=== PATIENT | female | born 1980 | race Asian ===

== ENCOUNTER 2018-03-22 04:08 | Inpatient (IN) | payer OTHER ==
[2018-03-22 05:20] LABS: ADD MAN DIFF? NO
[2018-03-22 05:21] LABS: BASOPHILS % 0.6 % (0.0-2.0); EOSINOPHILS # 0.1 10^3/ul (0.0-0.5); EOSINOPHILS % 1.6 % (0.0-7.0); HEMOGLOBIN 8.4 g/dl (12.0-16.0); LYMPHOCYTES # 0.8 10^3/ul (0.8-2.9); MEAN CORPUSCULAR HEMOGLOBIN 26.3 pg (29.0-33.0); MEAN CORPUSCULAR HGB CONC 31.1 g/dl (32.0-37.0); MEAN CORPUSCULAR VOLUME 84.4 fl (82.0-101.0); MEAN PLATELET VOLUME 9.4 fl (7.4-10.4); MONOCYTE # 0.6 10^3/ul (0.3-0.9); MONOCYTES % 8.4 % (0.0-11.0); NEUTROPHIL # 5.4 10^3/ul (1.6-7.5); NEUTROPHILS % 77.1 % (39.0-77.0); PLATELET COUNT 311 10^3/UL (140-415)
[2018-03-22] MEDS: SOD CHLORIDE 0.9% 1,000 ML IV (05:22)
[2018-03-22] MEDS: morphine 4 MG/ML VIAL IV (05:22)
[2018-03-22] MEDS: ONDANSETRON 4 MG INJ IV ×2 (05:22→09:06)
[2018-03-22 05:56] LABS: ALANINE AMINOTRANSFERASE 19 IU/L (13-69); ALBUMIN 3.2 g/dl (3.3-4.9); ALKALINE PHOSPHATASE 52 IU/L (42-121); ANION GAP 10 (5-13); ASPARTATE AMINO TRANSFERASE 25 IU/L (15-46); BILIRUBIN,INDIRECT 0.2 mg/dl (0-1.1); BILIRUBIN,TOTAL 0.2 mg/dl (0.2-1.3); BLOOD UREA NITROGEN 11 mg/dl (7-20); CALCIUM 8.9 mg/dl (8.4-10.2); CARBON DIOXIDE 25 mmol/L (21-31); CHLORIDE 104 mmol/L (97-110); CREATININE 0.88 mg/dl (0.44-1.00); Estimated GFR > 60 mL/min (>60); GLUCOSE 102 mg/dl (70-220); LIPASE 50 U/L (23-300); SODIUM 139 mmol/L (135-144); TOTAL PROTEIN 6.4 g/dl (6.1-8.1)
[2018-03-22 08:00] LABS: ADD UMIC NO; UR ASCORBIC ACID NEGATIVE (NEGATIVE); UR BILIRUBIN (Dip) NEGATIVE (NEGATIVE); UR BLOOD (Dip) NEGATIVE (NEGATIVE); UR CLARITY CLEAR (CLEAR); UR COLOR YELLOW (YELLOW); UR GLUCOSE (Dip) NEGATIVE (NEGATIVE); UR KETONES (Dip) TRACE mg/dL (NEGATIVE); UR LEUKOCYTE ESTERASE (Dip) NEGATIVE Leu/ul (NEGATIVE); UR NITRITE (Dip) NEGATIVE (NEGATIVE); UR SPECIFIC GRAVITY (Dip) 1.011 (1.003-1.030); UR TOTAL PROTEIN (Dip) NEGATIVE (NEGATIVE); UR UROBILINOGEN (Dip) 1+ mg/dL (NEGATIVE)
[2018-03-22] MEDS: HYDROmorphONE 2 MG/ML SYG IV (09:06)
[2018-03-22] MEDS ORDERED: METOCLOPRAMIDE 10 MG INJ (10:27)
[2018-03-22] MEDS: PANTOPRAZOLE 40 MG INJ IV (10:34)
[2018-03-22] MEDS: METOCLOPRAMIDE 10 MG INJ IV (10:34)
[2018-03-22] MEDS: IOHEXOL 14.3 MG(I)/ML (ADULT) BTL PO (12:09)
[2018-03-22] MEDS: IOHEXOL 300MG/ML 150 ML BTL (15:37)
[2018-03-22] MEDS: SOD CHLORIDE 0.9% 100 ML (15:37)
[2018-03-22] MEDS: HYDROmorphONE 1 MG/ML SYG IV ×2 (16:12→20:50)
[2018-03-23] MEDS: HYDROmorphONE 1 MG/ML SYG IV ×6 (00:51→21:32)
[2018-03-23] MEDS: METOCLOPRAMIDE 10 MG INJ IV ×4 (01:23→17:25)
[2018-03-23] MEDS: OXYCODONE/ACETAMINOPHEN (10/325) TAB PO (07:47)
[2018-03-23 11:01] LABS: ADD MAN DIFF? NO
[2018-03-23 11:04] LABS: WHITE BLOOD COUNT 7.3 10^3/ul (4.8-10.8)
[2018-03-23 11:04] LABS: BASOPHIL # 0.1 10^3/ul (0.0-0.1); BASOPHILS % 0.7 % (0.0-2.0); EOSINOPHILS # 0.1 10^3/ul (0.0-0.5); EOSINOPHILS % 0.8 % (0.0-7.0); HEMOGLOBIN 8.8 g/dl (12.0-16.0); LYMPHOCYTES # 0.8 10^3/ul (0.8-2.9); LYMPHOCYTES % 10.9 % (15.0-51.0); MEAN CORPUSCULAR HEMOGLOBIN 25.9 pg (29.0-33.0); MEAN CORPUSCULAR HGB CONC 30.3 g/dl (32.0-37.0); MEAN CORPUSCULAR VOLUME 85.3 fl (82.0-101.0); MEAN PLATELET VOLUME 9.8 fl (7.4-10.4); MONOCYTE # 0.5 10^3/ul (0.3-0.9); MONOCYTES % 7.2 % (0.0-11.0); NEUTROPHIL # 5.8 10^3/ul (1.6-7.5); NEUTROPHILS % 79.8 % (39.0-77.0); PLATELET COUNT 329 10^3/UL (140-415); RED CELL DISTRIBUTION WIDTH 18.1 % (11.5-14.5)
[2018-03-23 11:28] LABS: ALANINE AMINOTRANSFERASE 35 IU/L (13-69); ALBUMIN 3.7 g/dl (3.3-4.9); ALBUMIN/GLOBULIN RATIO 1.12; ALKALINE PHOSPHATASE 58 IU/L (42-121); ANION GAP 13 (5-13); ASPARTATE AMINO TRANSFERASE 39 IU/L (15-46); BILIRUBIN,INDIRECT 0.4 mg/dl (0-1.1); BILIRUBIN,TOTAL 0.4 mg/dl (0.2-1.3); BLOOD UREA NITROGEN 6 mg/dl (7-20); CALCIUM 8.9 mg/dl (8.4-10.2); CARBON DIOXIDE 21 mmol/L (21-31); CHLORIDE 107 mmol/L (97-110); CREATININE 0.76 mg/dl (0.44-1.00); Estimated GFR > 60 mL/min (>60); GLUCOSE 70 mg/dl (70-220); POTASSIUM 4.4 mmol/L (3.5-5.1); SODIUM 141 mmol/L (135-144)
[2018-03-23] MEDS: BISACODYL (EC) 5 MG TAB PO ×2 (13:17→20:18)
[2018-03-23] MEDS: PEG/ELECTROLYTES 4L BTL PO ×2 (16:43→20:19)
[2018-03-23] MEDS: DEXTROSE 5%-0.45% NACL 1,000 ML IV (20:20)
[2018-03-23] MEDS: ZOLPIDEM 5 MG TAB PO (22:58)
[2018-03-24] MEDS: METOCLOPRAMIDE 10 MG INJ IV ×4 (00:01→18:06)
[2018-03-24] MEDS: HYDROmorphONE 2 MG/ML SYG IV ×6 (01:13→21:50)
[2018-03-24 07:01] LABS: ADD MAN DIFF? NO
[2018-03-24 07:10] LABS: BASOPHILS % 0.7 % (0.0-2.0); EOSINOPHILS # 0.1 10^3/ul (0.0-0.5); HEMATOCRIT 28.9 % (37.0-47.0); HEMOGLOBIN 8.8 g/dl (12.0-16.0); LYMPHOCYTES # 1.1 10^3/ul (0.8-2.9); MEAN CORPUSCULAR HGB CONC 30.4 g/dl (32.0-37.0); MEAN CORPUSCULAR VOLUME 85.3 fl (82.0-101.0); MEAN PLATELET VOLUME 9.9 fl (7.4-10.4); MONOCYTE # 0.7 10^3/ul (0.3-0.9); MONOCYTES % 12.4 % (0.0-11.0); NEUTROPHIL # 3.7 10^3/ul (1.6-7.5); NEUTROPHILS % 65.5 % (39.0-77.0); PLATELET COUNT 376 10^3/UL (140-415); RED BLOOD COUNT 3.39 10^6/ul (4.20-5.40)
[2018-03-24 07:10] LABS: WHITE BLOOD COUNT 5.6 10^3/ul (4.8-10.8)
[2018-03-24 07:23] LABS: INR 1.07; PARTIAL THROMBOPLASTIN TIME 32.3 Sec (23.0-35.0); PT RATIO 1.1
[2018-03-24] MEDS: DEXTROSE 5%-0.45% NACL 1,000 ML IV ×2 (11:10→12:29)
[2018-03-24] MEDS: OXYCODONE/ACETAMINOPHEN (10/325) TAB PO ×2 (12:35→21:17)
[2018-03-24] MEDS: PROPOFOL 40 ML (16:08)
[2018-03-24] MEDS: ZOLPIDEM 5 MG TAB PO (23:03)
[2018-03-25] MEDS: METOCLOPRAMIDE 10 MG INJ IV ×4 (00:21→17:21)
[2018-03-25] MEDS: HYDROmorphONE 2 MG/ML SYG IV ×5 (05:12→21:24)
[2018-03-25 05:14] LABS: WHITE BLOOD COUNT 6.3 10^3/ul (4.8-10.8)
[2018-03-25 05:14] LABS: ADD MAN DIFF? NO; BASOPHILS % 0.6 % (0.0-2.0); EOSINOPHILS # 0.2 10^3/ul (0.0-0.5); EOSINOPHILS % 2.8 % (0.0-7.0); HEMATOCRIT 29.5 % (37.0-47.0); HEMOGLOBIN 9.1 g/dl (12.0-16.0); LYMPHOCYTES # 1.1 10^3/ul (0.8-2.9); LYMPHOCYTES % 16.8 % (15.0-51.0); MEAN CORPUSCULAR HEMOGLOBIN 25.9 pg (29.0-33.0); MEAN CORPUSCULAR HGB CONC 30.8 g/dl (32.0-37.0); MEAN CORPUSCULAR VOLUME 83.8 fl (82.0-101.0); MEAN PLATELET VOLUME 9.8 fl (7.4-10.4); MONOCYTE # 0.8 10^3/ul (0.3-0.9); NEUTROPHIL # 4.3 10^3/ul (1.6-7.5); NEUTROPHILS % 67.5 % (39.0-77.0); PLATELET COUNT 356 10^3/UL (140-415); RED BLOOD COUNT 3.52 10^6/ul (4.20-5.40)
[2018-03-25 05:53] LABS: ANION GAP 12 (5-13); BLOOD UREA NITROGEN 2 mg/dl (7-20); CALCIUM 8.9 mg/dl (8.4-10.2); CARBON DIOXIDE 23 mmol/L (21-31); CHLORIDE 106 mmol/L (97-110); CREATININE 0.78 mg/dl (0.44-1.00); Estimated GFR > 60 mL/min (>60); GLUCOSE 82 mg/dl (70-220); POTASSIUM 3.7 mmol/L (3.5-5.1); SODIUM 141 mmol/L (135-144)
[2018-03-25] MEDS: OXYCODONE/ACETAMINOPHEN (10/325) TAB PO ×3 (11:19→19:30)
[2018-03-25] MEDS: MEGESTROL (40 MG/ML) 10ML CUP PO (12:10)
[2018-03-25] MEDS: DEXTROSE 5%-0.45% NACL 1,000 ML IV (20:30)
[2018-03-25] MEDS: ZOLPIDEM 5 MG TAB PO (22:48)
[2018-03-26] MEDS: METOCLOPRAMIDE 10 MG INJ IV ×5 (00:01→23:45)
[2018-03-26] MEDS: HYDROmorphONE 2 MG/ML SYG IV ×6 (02:29→22:38)
[2018-03-26 05:20] LABS: ADD MAN DIFF? NO
[2018-03-26 05:25] LABS: WHITE BLOOD COUNT 7.3 10^3/ul (4.8-10.8)
[2018-03-26 05:25] LABS: BASOPHILS % 0.4 % (0.0-2.0); EOSINOPHILS # 0.3 10^3/ul (0.0-0.5); EOSINOPHILS % 4.1 % (0.0-7.0); HEMATOCRIT 30.8 % (37.0-47.0); HEMOGLOBIN 9.4 g/dl (12.0-16.0); LYMPHOCYTES # 1.1 10^3/ul (0.8-2.9); LYMPHOCYTES % 14.5 % (15.0-51.0); MEAN CORPUSCULAR HEMOGLOBIN 25.3 pg (29.0-33.0); MEAN CORPUSCULAR HGB CONC 30.5 g/dl (32.0-37.0); MEAN CORPUSCULAR VOLUME 82.8 fl (82.0-101.0); MEAN PLATELET VOLUME 9.8 fl (7.4-10.4); MONOCYTE # 0.9 10^3/ul (0.3-0.9); MONOCYTES % 11.6 % (0.0-11.0); PLATELET COUNT 357 10^3/UL (140-415); RED BLOOD COUNT 3.72 10^6/ul (4.20-5.40); RED CELL DISTRIBUTION WIDTH 17.9 % (11.5-14.5)
[2018-03-26] MEDS: OXYCODONE/ACETAMINOPHEN (10/325) TAB PO ×4 (05:33→17:47)
[2018-03-26 05:45] LABS: ANION GAP 9 (5-13); BLOOD UREA NITROGEN 2 mg/dl (7-20); CALCIUM 8.4 mg/dl (8.4-10.2); CARBON DIOXIDE 24 mmol/L (21-31); CHLORIDE 108 mmol/L (97-110); CREATININE 0.76 mg/dl (0.44-1.00); Estimated GFR > 60 mL/min (>60); GLUCOSE 79 mg/dl (70-220); POTASSIUM 3.8 mmol/L (3.5-5.1); SODIUM 141 mmol/L (135-144)
[2018-03-26] MEDS: MEGESTROL (40 MG/ML) 10ML CUP PO (08:41)
[2018-03-26] MEDS ORDERED: MEGESTROL 40 MG TAB PO (09:00)
[2018-03-26] MEDS: DEXTROSE 5%-0.45% NACL 1,000 ML IV (13:10)
[2018-03-26] MEDS: ZOLPIDEM 5 MG TAB PO (23:45)
[2018-03-27] MEDS: HYDROmorphONE 2 MG/ML SYG IV ×3 (04:03→12:21)
[2018-03-27] MEDS: METOCLOPRAMIDE 10 MG INJ IV ×2 (05:37→12:17)
[2018-03-27] MEDS: OXYCODONE/ACETAMINOPHEN (10/325) TAB PO ×2 (05:40→13:14)
[2018-03-27 05:42] LABS: ADD MAN DIFF? NO
[2018-03-27] MEDS: DEXTROSE 5%-0.45% NACL 1,000 ML IV (05:50)
[2018-03-27 05:53] LABS: BASOPHILS % 0.4 % (0.0-2.0); EOSINOPHILS # 0.5 10^3/ul (0.0-0.5); EOSINOPHILS % 5.5 % (0.0-7.0); HEMATOCRIT 31.5 % (37.0-47.0); HEMOGLOBIN 9.5 g/dl (12.0-16.0); LYMPHOCYTES # 0.9 10^3/ul (0.8-2.9); MEAN CORPUSCULAR HEMOGLOBIN 24.9 pg (29.0-33.0); MEAN CORPUSCULAR HGB CONC 30.2 g/dl (32.0-37.0); MEAN CORPUSCULAR VOLUME 82.7 fl (82.0-101.0); MEAN PLATELET VOLUME 10.1 fl (7.4-10.4); MONOCYTE # 0.9 10^3/ul (0.3-0.9); MONOCYTES % 10.3 % (0.0-11.0); NEUTROPHIL # 6.2 10^3/ul (1.6-7.5); NEUTROPHILS % 72.4 % (39.0-77.0); PLATELET COUNT 396 10^3/UL (140-415); RED BLOOD COUNT 3.81 10^6/ul (4.20-5.40); RED CELL DISTRIBUTION WIDTH 17.7 % (11.5-14.5)
[2018-03-27 05:53] LABS: WHITE BLOOD COUNT 8.6 10^3/ul (4.8-10.8)
[2018-03-27 06:18] LABS: ANION GAP 11 (5-13); BLOOD UREA NITROGEN 2 mg/dl (7-20); CALCIUM 8.3 mg/dl (8.4-10.2); CARBON DIOXIDE 24 mmol/L (21-31); CHLORIDE 107 mmol/L (97-110); CREATININE 0.69 mg/dl (0.44-1.00); Estimated GFR > 60 mL/min (>60); GLUCOSE 82 mg/dl (70-220); POTASSIUM 3.2 mmol/L (3.5-5.1); SODIUM 142 mmol/L (135-144)
[2018-03-27] MEDS: MEGESTROL (40 MG/ML) 10ML CUP PO (08:26)
[2018-03-27] MEDS: POTASSIUM CHLORIDE (SR) 20 MEQ TAB PO (09:17)
[2018-03-27] MEDS: ONDANSETRON 4 MG INJ IV (10:34)
[2018-03-27] MEDS: HEPARIN (100 UNITS/ML) 5 ML SYG CATHETER (14:50)
== END 2018-03-27 15:05 | disposition home or self-care (01) | DRG 841 ==
LOC: E/R 04:08 → PP2 11:35
PROC: 0DJD8ZZ Inspection of Lower Intestinal Tract, Via Natural or Artificial Opening Endoscopic (ICD-10-PCS; principal; 2018-03-24 15:40)
DX: C77.9 Secondary and unspecified malignant neoplasm of lymph node, unspecified (principal); C18.9 Malignant neoplasm of colon, unspecified; N13.1 Hydronephrosis with ureteral stricture, not elsewhere classified; K29.70 Gastritis, unspecified, without bleeding; D63.8 Anemia in other chronic diseases classified elsewhere; M54.9 Dorsalgia, unspecified; G89.3 Neoplasm related pain (acute) (chronic); R10.9 Unspecified abdominal pain; R11.2 Nausea with vomiting, unspecified; Z90.49 Acquired absence of other specified parts of digestive tract
CPT/HCPCS: 36415; 74177; 78306; 80048; 80053; 81003; 83690; 84703; 85025; 85610; 85730; 96361; 96374; 96375; 99285-25; A9503

== ENCOUNTER 2018-04-03 18:31 | Inpatient (IN) | payer OTHER ==
[2018-04-03] MEDS: HYDROmorphONE 1 MG/ML SYG IV (19:41)
[2018-04-03] MEDS: METOCLOPRAMIDE 10 MG INJ IV (19:42)
[2018-04-03] MEDS: LORAZEPAM 2 MG INJ IV (19:42)
[2018-04-03] MEDS: SOD CHLORIDE 0.9% 1,000 ML IV (19:42)
[2018-04-03 20:12] LABS: ADD MAN DIFF? NO
[2018-04-03 20:14] LABS: BASOPHILS % 0.5 % (0.0-2.0); EOSINOPHILS # 0.2 10^3/ul (0.0-0.5); EOSINOPHILS % 2.6 % (0.0-7.0); HEMOGLOBIN 8.3 g/dl (12.0-16.0); LYMPHOCYTES # 1.2 10^3/ul (0.8-2.9); LYMPHOCYTES % 15.1 % (15.0-51.0); MEAN CORPUSCULAR HEMOGLOBIN 24.8 pg (29.0-33.0); MEAN CORPUSCULAR HGB CONC 30.7 g/dl (32.0-37.0); MEAN CORPUSCULAR VOLUME 80.6 fl (82.0-101.0); MEAN PLATELET VOLUME 8.9 fl (7.4-10.4); MONOCYTE # 0.9 10^3/ul (0.3-0.9); MONOCYTES % 11.1 % (0.0-11.0); NEUTROPHIL # 5.4 10^3/ul (1.6-7.5); NEUTROPHILS % 70.3 % (39.0-77.0); PLATELET COUNT 379 10^3/UL (140-415); RED BLOOD COUNT 3.35 10^6/ul (4.20-5.40); RED CELL DISTRIBUTION WIDTH 18.5 % (11.5-14.5)
[2018-04-03 20:14] LABS: WHITE BLOOD COUNT 7.6 10^3/ul (4.8-10.8)
[2018-04-03 20:34] LABS: PROTIME 14.4 Sec (11.9-14.9); PT RATIO 1.1
[2018-04-03 20:37] LABS: ALANINE AMINOTRANSFERASE 14 IU/L (13-69); ALBUMIN 3.6 g/dl (3.3-4.9); ALBUMIN/GLOBULIN RATIO 1.24; ALKALINE PHOSPHATASE 56 IU/L (42-121); ANION GAP 7 (5-13); ASPARTATE AMINO TRANSFERASE 18 IU/L (15-46); BILIRUBIN,INDIRECT 0.3 mg/dl (0-1.1); BILIRUBIN,TOTAL 0.3 mg/dl (0.2-1.3); BLOOD UREA NITROGEN 11 mg/dl (7-20); CALCIUM 8.7 mg/dl (8.4-10.2); CARBON DIOXIDE 22 mmol/L (21-31); CHLORIDE 109 mmol/L (97-110); CREATININE 1.07 mg/dl (0.44-1.00); Estimated GFR 57 mL/min (>60); GLUCOSE 93 mg/dl (70-220); LIPASE 88 U/L (23-300); POTASSIUM 4.2 mmol/L (3.5-5.1); SODIUM 138 mmol/L (135-144); TOTAL PROTEIN 6.5 g/dl (6.1-8.1)
[2018-04-03] MEDS: HYDROmorphONE 0.5 MG/0.5 ML SYG IV (21:21)
[2018-04-03] MEDS ORDERED: ONDANSETRON 4 MG INJ IV (21:30)
[2018-04-03] MEDS ORDERED: ACETAMINOPHEN 325 MG TAB PO ×2 (21:30→23:30)
[2018-04-03] MEDS ORDERED: CHOLECALCIFEROL 1,000 UNIT TAB PO (23:30)
[2018-04-04] MEDS: HYDROmorphONE 1 MG/ML SYG IV ×7 (00:12→20:03)
[2018-04-04] MEDS: DEXTROSE 5%-0.45% NACL 1,000 ML IV ×3 (00:15→18:17)
[2018-04-04] MEDS: ZOLPIDEM 5 MG TAB PO (00:53)
[2018-04-04] MEDS: OXYCODONE/ACETAMINOPHEN (10/325) TAB PO ×3 (03:28→18:14)
[2018-04-04 05:15] LABS: ADD MAN DIFF? NO
[2018-04-04 05:20] LABS: WHITE BLOOD COUNT 6.9 10^3/ul (4.8-10.8)
[2018-04-04 05:20] LABS: BASOPHILS % 0.6 % (0.0-2.0); EOSINOPHILS # 0.2 10^3/ul (0.0-0.5); EOSINOPHILS % 3.1 % (0.0-7.0); HEMATOCRIT 25.6 % (37.0-47.0); HEMOGLOBIN 7.8 g/dl (12.0-16.0); LYMPHOCYTES # 1.1 10^3/ul (0.8-2.9); LYMPHOCYTES % 16.1 % (15.0-51.0); MEAN CORPUSCULAR HEMOGLOBIN 24.6 pg (29.0-33.0); MEAN CORPUSCULAR HGB CONC 30.5 g/dl (32.0-37.0); MEAN CORPUSCULAR VOLUME 80.8 fl (82.0-101.0); MEAN PLATELET VOLUME 9.3 fl (7.4-10.4); MONOCYTE # 0.8 10^3/ul (0.3-0.9); MONOCYTES % 12.1 % (0.0-11.0); NEUTROPHIL # 4.7 10^3/ul (1.6-7.5); NEUTROPHILS % 67.8 % (39.0-77.0); PLATELET COUNT 384 10^3/UL (140-415); RED BLOOD COUNT 3.17 10^6/ul (4.20-5.40); RED CELL DISTRIBUTION WIDTH 18.5 % (11.5-14.5)
[2018-04-04 05:46] LABS: ANION GAP 8 (5-13); BLOOD UREA NITROGEN 9 mg/dl (7-20); CALCIUM 8.8 mg/dl (8.4-10.2); CARBON DIOXIDE 24 mmol/L (21-31); CHLORIDE 109 mmol/L (97-110); CREATININE 0.88 mg/dl (0.44-1.00); Estimated GFR > 60 mL/min (>60); GLUCOSE 93 mg/dl (70-220); POTASSIUM 3.8 mmol/L (3.5-5.1); SODIUM 141 mmol/L (135-144)
[2018-04-04] MEDS: PANTOPRAZOLE 40 MG INJ IV (06:04)
[2018-04-04] MEDS: LACTOBACILLUS RHAMNOSUS CAP PO (08:16)
[2018-04-04] MEDS: FLUOXETINE 20 MG CAP PO (08:16)
[2018-04-04] MEDS: PREGABALIN 50 MG CAP PO ×2 (08:16→19:42)
[2018-04-04] MEDS: CHOLECALCIFEROL 1,000 UNIT TAB PO (08:16)
[2018-04-04] MEDS ORDERED: INFLUENZA VIRUS VACCINE 0.5 ML (DISPENSING) IM* (10:00)
[2018-04-04] MEDS ORDERED: HYDROmorphONE 2 MG/ML SYG IV (11:30)
[2018-04-04] MEDS: METOCLOPRAMIDE 10 MG INJ IV ×2 (13:51→18:14)
[2018-04-04] MEDS: SOD CHLORIDE 0.9% 100 ML ×2 (14:15→14:23)
[2018-04-04] MEDS: IOHEXOL 300MG/ML 150 ML BTL ×2 (14:15→14:23)
[2018-04-04 14:44] LABS: PROTIME 14.4 Sec (11.9-14.9); PT RATIO 1.1
[2018-04-04] MEDS: LORAZEPAM 2 MG INJ IV (14:49)
[2018-04-04] MEDS: HYDROmorphONE 2 MG/ML SYG IV (23:20)
[2018-04-05] MEDS: HYDROmorphONE 2 MG/ML SYG IV ×7 (02:23→22:33)
[2018-04-05] MEDS: METOCLOPRAMIDE 10 MG INJ IV ×2 (05:00→12:35)
[2018-04-05] MEDS: PANTOPRAZOLE 40 MG INJ IV (05:02)
[2018-04-05] MEDS: LORAZEPAM 2 MG INJ IV (05:28)
[2018-04-05] MEDS: DEXTROSE 5%-0.45% NACL 1,000 ML IV (09:08)
[2018-04-05] MEDS: CHOLECALCIFEROL 1,000 UNIT TAB PO (09:12)
[2018-04-05] MEDS: FLUOXETINE 20 MG CAP PO (09:12)
[2018-04-05] MEDS: PREGABALIN 50 MG CAP PO ×2 (09:12→22:33)
[2018-04-05] MEDS ORDERED: MEPERIDINE 50 MG INJ IV (12:00)
[2018-04-05] MEDS ORDERED: METHYLPREDNISOLONE 125 MG INJ IV (12:00)
[2018-04-05] MEDS ORDERED: DIPHENHYDRAMINE 50 MG INJ IV ×2 (12:00→15:00)
[2018-04-05] MEDS: OXYCODONE/ACETAMINOPHEN (10/325) TAB PO (14:40)
[2018-04-05] MEDS ORDERED: ONDANSETRON INJ 16 MG, DEXAMETHASONE 4 MG/ML 10 MG in SOD CHLORIDE 0.9% 50 ML IV (15:00)
[2018-04-05] MEDS ORDERED: SOD CHLORIDE 0.9% 1,000 ML IV (15:00)
[2018-04-05] MEDS ORDERED: LEUCOVORIN CALCIUM IV (15:30)
[2018-04-05] MEDS ORDERED: DEXTROSE 5% IV ×2 (15:30)
[2018-04-05] MEDS ORDERED: IRINOTECAN IV (15:30)
[2018-04-05] MEDS: hydrALAzine 20 MG INJ IV ×2 (17:02→18:19)
[2018-04-05] MEDS ORDERED: hydrALAzine 20 MG INJ IV ×2 (17:30→20:30)
[2018-04-05] MEDS ORDERED: SOD CHLORIDE 0.9% IV ×3 (18:00→21:00)
[2018-04-05] MEDS ORDERED: BEVACIZUMAB IV (18:00)
[2018-04-05] MEDS ORDERED: MIDAZOLAM 1 MG/ML 2 ML INJ (19:13)
[2018-04-05] MEDS ORDERED: SUCCINYLCHOLINE CHLORIDE 100 MG/5 ML SYG IV (19:13)
[2018-04-05] MEDS ORDERED: PROPOFOL 20 ML (19:13)
[2018-04-05] MEDS ORDERED: METOCLOPRAMIDE 10 MG INJ (19:14)
[2018-04-05] MEDS ORDERED: FENTAnyl 50 MCG/ML VIAL (19:34)
[2018-04-05] MEDS: IOHEXOL 300MG/ML 30 ML BTL (19:51)
[2018-04-05] MEDS ORDERED: ONDANSETRON 4 MG INJ (20:00)
[2018-04-05] MEDS ORDERED: FLUOROURACIL IV ×2 (20:00→21:00)
[2018-04-05] MEDS ORDERED: CEFAZOLIN 1 GM INJ (20:00)
[2018-04-05] MEDS ORDERED: DIPHENHYDRAMINE 50 MG INJ (20:13)
[2018-04-05] MEDS ORDERED: HYDROmorphONE 1 MG/5 ML IV SYRINGE IV ×3 (20:26→20:30)
[2018-04-05] MEDS ORDERED: ONDANSETRON 4 MG INJ IV (20:30)
[2018-04-05] MEDS ORDERED: LABETALOL HCL 20MG INJ IV (20:30)
[2018-04-05] MEDS: HYDROmorphONE 1 MG/5 ML IV SYRINGE IV (20:46)
[2018-04-05] MEDS: DIPHENHYDRAMINE 50 MG INJ IV (20:47)
[2018-04-05 22:47] LABS: IMMEDIATE SPIN CROSSMATCH 1 3
[2018-04-06] MEDS: OXYCODONE/ACETAMINOPHEN (10/325) TAB PO ×3 (01:13→13:22)
[2018-04-06] MEDS: HYDROmorphONE 2 MG/ML SYG IV ×8 (01:23→23:35)
[2018-04-06] MEDS: PANTOPRAZOLE 40 MG INJ IV (05:14)
[2018-04-06] MEDS: FLUOXETINE 20 MG CAP PO (08:11)
[2018-04-06] MEDS: PREGABALIN 50 MG CAP PO ×2 (08:11→20:36)
[2018-04-06] MEDS: CHOLECALCIFEROL 1,000 UNIT TAB PO (08:11)
[2018-04-06 08:23] LABS: ADD MAN DIFF? NO
[2018-04-06 08:29] LABS: BASOPHIL # 0.1 10^3/ul (0.0-0.1); BASOPHILS % 0.6 % (0.0-2.0); EOSINOPHILS # 0.1 10^3/ul (0.0-0.5); EOSINOPHILS % 1.3 % (0.0-7.0); HEMATOCRIT 31.8 % (37.0-47.0); HEMOGLOBIN 10.2 g/dl (12.0-16.0); LYMPHOCYTES % 11.3 % (15.0-51.0); MEAN CORPUSCULAR HEMOGLOBIN 24.9 pg (29.0-33.0); MEAN CORPUSCULAR HGB CONC 32.1 g/dl (32.0-37.0); MEAN CORPUSCULAR VOLUME 77.8 fl (82.0-101.0); MEAN PLATELET VOLUME 9.2 fl (7.4-10.4); MONOCYTES % 10.5 % (0.0-11.0); NEUTROPHIL # 6.9 10^3/ul (1.6-7.5); PLATELET COUNT 364 10^3/UL (140-415); RED BLOOD COUNT 4.09 10^6/ul (4.20-5.40); RED CELL DISTRIBUTION WIDTH 17.5 % (11.5-14.5)
[2018-04-06 08:29] LABS: WHITE BLOOD COUNT 9.1 10^3/ul (4.8-10.8)
[2018-04-06] MEDS: DEXTROSE 5%-0.45% NACL 1,000 ML IV ×2 (08:42→11:04)
[2018-04-06] MEDS: LORAZEPAM 0.5 MG TAB PO (14:39)
[2018-04-06] MEDS: morphine (ER) 30 MG TAB PO ×2 (15:01→23:04)
[2018-04-06] MEDS: POLYETHYLENE GLYCOL 17 GM PACKET PO (17:18)
[2018-04-06] MEDS: ZOLPIDEM 5 MG TAB PO (22:07)
[2018-04-07] MEDS: DEXTROSE 5%-0.45% NACL 1,000 ML IV ×2 (01:01→17:32)
[2018-04-07] MEDS: HYDROmorphONE 2 MG/ML SYG IV ×2 (02:31→05:46)
[2018-04-07] MEDS: PANTOPRAZOLE 40 MG INJ IV (05:46)
[2018-04-07] MEDS: LORAZEPAM 2 MG INJ IV (07:46)
[2018-04-07] MEDS: FENTAnyl 50 MCG/ML VIAL (09:55)
[2018-04-07] MEDS: MIDAZOLAM 1 MG/ML 2 ML INJ (10:00)
[2018-04-07] MEDS: HYDROmorphONE 1 MG/ML SYG IV ×4 (10:51→21:08)
[2018-04-07] MEDS: CHOLECALCIFEROL 1,000 UNIT TAB PO (10:51)
[2018-04-07] MEDS: PREGABALIN 50 MG CAP PO ×2 (10:52→21:19)
[2018-04-07] MEDS: FLUOXETINE 20 MG CAP PO (10:52)
[2018-04-07] MEDS: morphine (ER) 30 MG TAB PO ×2 (10:52→21:19)
[2018-04-07] MEDS: POLYETHYLENE GLYCOL 17 GM PACKET PO (18:02)
[2018-04-07] MEDS: LORAZEPAM 0.5 MG TAB PO (18:51)
[2018-04-07] MEDS: METOCLOPRAMIDE 10 MG INJ IV (18:51)
[2018-04-08] MEDS: HYDROmorphONE 1 MG/ML SYG IV ×8 (00:19→23:12)
[2018-04-08] MEDS: PANTOPRAZOLE 40 MG INJ IV (06:56)
[2018-04-08] MEDS: FLUOXETINE 20 MG CAP PO (08:36)
[2018-04-08] MEDS: PREGABALIN 50 MG CAP PO ×2 (08:36→21:57)
[2018-04-08] MEDS: DEXTROSE 5%-0.45% NACL 1,000 ML IV ×2 (08:36→17:54)
[2018-04-08] MEDS: morphine (ER) 30 MG TAB PO ×2 (08:36→21:57)
[2018-04-08] MEDS: CHOLECALCIFEROL 1,000 UNIT TAB PO (08:36)
[2018-04-08] MEDS ORDERED: LOPERAMIDE 2 MG CAP PO (11:00)
[2018-04-08 11:56] LABS: ADD MAN DIFF? NO
[2018-04-08 11:58] LABS: BASOPHIL # 0.1 10^3/ul (0.0-0.1); BASOPHILS % 0.6 % (0.0-2.0); EOSINOPHILS # 0.3 10^3/ul (0.0-0.5); EOSINOPHILS % 3.3 % (0.0-7.0); HEMATOCRIT 34.1 % (37.0-47.0); HEMOGLOBIN 10.6 g/dl (12.0-16.0); LYMPHOCYTES % 11.4 % (15.0-51.0); MEAN CORPUSCULAR HGB CONC 31.1 g/dl (32.0-37.0); MEAN CORPUSCULAR VOLUME 80.4 fl (82.0-101.0); MEAN PLATELET VOLUME 9.4 fl (7.4-10.4); MONOCYTES % 10.6 % (0.0-11.0); NEUTROPHIL # 6.7 10^3/ul (1.6-7.5); NEUTROPHILS % 73.9 % (39.0-77.0); PLATELET COUNT 363 10^3/UL (140-415); RED BLOOD COUNT 4.24 10^6/ul (4.20-5.40); RED CELL DISTRIBUTION WIDTH 17.9 % (11.5-14.5)
[2018-04-08 12:18] LABS: ANION GAP 7 (5-13); BLOOD UREA NITROGEN 2 mg/dl (7-20); CALCIUM 8.6 mg/dl (8.4-10.2); CARBON DIOXIDE 26 mmol/L (21-31); CHLORIDE 108 mmol/L (97-110); CREATININE 0.71 mg/dl (0.44-1.00); Estimated GFR > 60 mL/min (>60); GLUCOSE 103 mg/dl (70-220); POTASSIUM 3.6 mmol/L (3.5-5.1); SODIUM 141 mmol/L (135-144)
[2018-04-08] MEDS ORDERED: MEPERIDINE 50 MG INJ IV (15:30)
[2018-04-08] MEDS ORDERED: DIPHENHYDRAMINE 50 MG INJ IV ×2 (15:30)
[2018-04-08] MEDS ORDERED: METHYLPREDNISOLONE 125 MG INJ IV (15:30)
[2018-04-08] MEDS: SOD CHLORIDE 0.9% 1,000 ML IV (15:52)
[2018-04-08] MEDS: DIPHENHYDRAMINE 50 MG INJ IV (17:28)
[2018-04-08] MEDS: ONDANSETRON INJ 16 MG, DEXAMETHASONE 4 MG/ML 10 MG in SOD CHLORIDE 0.9% 50 ML IV (17:29)
[2018-04-08] MEDS: IRINOTECAN IV (18:21)
[2018-04-08] MEDS: DEXTROSE 5% IV ×2 (18:21→18:24)
[2018-04-08] MEDS: LEUCOVORIN CALCIUM IV (18:24)
[2018-04-08] MEDS: ZOLPIDEM 5 MG TAB PO (21:56)
[2018-04-08] MEDS: FLUOROURACIL IV ×2 (21:59→23:11)
[2018-04-08] MEDS: SOD CHLORIDE 0.9% IV ×2 (21:59→23:11)
[2018-04-09] MEDS: SOD CHLORIDE 0.9% 1,000 ML IV ×4 (02:00→21:23)
[2018-04-09] MEDS: HYDROmorphONE 1 MG/ML SYG IV ×2 (03:18→06:18)
[2018-04-09] MEDS: PANTOPRAZOLE 40 MG INJ IV (06:18)
[2018-04-09] MEDS: DEXTROSE 5%-0.45% NACL 1,000 ML IV ×2 (08:12→21:58)
[2018-04-09] MEDS: PREGABALIN 50 MG CAP PO ×2 (09:44→21:21)
[2018-04-09] MEDS: CHOLECALCIFEROL 1,000 UNIT TAB PO (09:44)
[2018-04-09] MEDS: FLUOXETINE 20 MG CAP PO (09:44)
[2018-04-09] MEDS: morphine (ER) 30 MG TAB PO ×2 (09:45→21:22)
[2018-04-09] MEDS: HYDROmorphONE 2 MG/ML SYG IV ×3 (10:46→22:05)
[2018-04-09] MEDS: METOCLOPRAMIDE 10 MG INJ IV (15:07)
[2018-04-09] MEDS: LORAZEPAM 2 MG INJ IV (15:08)
[2018-04-09] MEDS: AMLODIPINE 5 MG TAB PO (17:40)
[2018-04-09] MEDS: ZOLPIDEM 5 MG TAB PO (23:38)
[2018-04-09] MEDS: FLUOROURACIL IV (23:56)
[2018-04-09] MEDS: SOD CHLORIDE 0.9% IV (23:56)
[2018-04-10] MEDS: DICYCLOMINE 10 MG CAP PO ×2 (00:54→21:27)
[2018-04-10] MEDS: SOD CHLORIDE 0.9% 1,000 ML IV ×3 (01:58→22:29)
[2018-04-10] MEDS: HYDROmorphONE 2 MG/ML SYG IV ×4 (02:54→18:31)
[2018-04-10] MEDS: PANTOPRAZOLE (EC) 40 MG TAB PO (05:29)
[2018-04-10] MEDS ORDERED: PANTOPRAZOLE (EC) 40 MG TAB PO (06:00)
[2018-04-10] MEDS: morphine (ER) 30 MG TAB PO ×2 (09:45→21:27)
[2018-04-10] MEDS: AMLODIPINE 5 MG TAB PO (09:46)
[2018-04-10] MEDS: FLUOXETINE 20 MG CAP PO (09:46)
[2018-04-10] MEDS: PREGABALIN 50 MG CAP PO ×2 (09:46→21:27)
[2018-04-10] MEDS: CHOLECALCIFEROL 1,000 UNIT TAB PO (09:46)
[2018-04-10] MEDS: DIPHENHYD/MYLANTA/LIDO (PO SYG) PO (12:22)
[2018-04-10] MEDS: LIDOCAINE 1% (MPF) 5 ML VIAL (12:24)
[2018-04-10] MEDS: DEXTROSE 5%-0.45% NACL 1,000 ML IV (12:48)
[2018-04-10] MEDS: METOCLOPRAMIDE 10 MG INJ IV (13:53)
[2018-04-10] MEDS: KELNOR PO (17:04)
[2018-04-10] MEDS: ZOLPIDEM 5 MG TAB PO (22:27)
[2018-04-11] MEDS: HYDROmorphONE 2 MG/ML SYG IV ×5 (00:47→18:29)
[2018-04-11] MEDS: DEXTROSE 5%-0.45% NACL 1,000 ML IV ×2 (02:29→14:47)
[2018-04-11] MEDS: PANTOPRAZOLE (EC) 40 MG TAB PO (05:02)
[2018-04-11 05:05] LABS: ADD MAN DIFF? NO
[2018-04-11 05:12] LABS: BASOPHILS % 0.5 % (0.0-2.0); EOSINOPHILS # 0.3 10^3/ul (0.0-0.5); HEMATOCRIT 33.3 % (37.0-47.0); HEMOGLOBIN 10.2 g/dl (12.0-16.0); LYMPHOCYTES # 1.2 10^3/ul (0.8-2.9); LYMPHOCYTES % 16.5 % (15.0-51.0); MEAN CORPUSCULAR HEMOGLOBIN 24.6 pg (29.0-33.0); MEAN CORPUSCULAR HGB CONC 30.6 g/dl (32.0-37.0); MEAN CORPUSCULAR VOLUME 80.2 fl (82.0-101.0); MEAN PLATELET VOLUME 9.6 fl (7.4-10.4); MONOCYTE # 0.1 10^3/ul (0.3-0.9); MONOCYTES % 1.9 % (0.0-11.0); NEUTROPHIL # 5.8 10^3/ul (1.6-7.5); NEUTROPHILS % 76.8 % (39.0-77.0); PLATELET COUNT 310 10^3/UL (140-415); RED BLOOD COUNT 4.15 10^6/ul (4.20-5.40)
[2018-04-11 05:12] LABS: WHITE BLOOD COUNT 7.5 10^3/ul (4.8-10.8)
[2018-04-11 05:43] LABS: ALANINE AMINOTRANSFERASE 12 IU/L (13-69); ALBUMIN 3.5 g/dl (3.3-4.9); ALBUMIN/GLOBULIN RATIO 1.16; ALKALINE PHOSPHATASE 48 IU/L (42-121); ANION GAP 7 (5-13); ASPARTATE AMINO TRANSFERASE 16 IU/L (15-46); BILIRUBIN,INDIRECT 1.2 mg/dl (0-1.1); BILIRUBIN,TOTAL 1.2 mg/dl (0.2-1.3); BLOOD UREA NITROGEN 8 mg/dl (7-20); CALCIUM 8.8 mg/dl (8.4-10.2); CARBON DIOXIDE 25 mmol/L (21-31); CHLORIDE 109 mmol/L (97-110); CREATININE 0.84 mg/dl (0.44-1.00); Estimated GFR > 60 mL/min (>60); GLUCOSE 94 mg/dl (70-220); POTASSIUM 3.8 mmol/L (3.5-5.1); SODIUM 141 mmol/L (135-144); TOTAL PROTEIN 6.5 g/dl (6.1-8.1)
[2018-04-11] MEDS: FLUOXETINE 20 MG CAP PO (09:13)
[2018-04-11] MEDS: PREGABALIN 50 MG CAP PO ×2 (09:13→21:11)
[2018-04-11] MEDS: morphine (ER) 30 MG TAB PO ×2 (09:14→21:10)
[2018-04-11] MEDS: AMLODIPINE 5 MG TAB PO (09:14)
[2018-04-11] MEDS: KELNOR PO (09:15)
[2018-04-11] MEDS: CHOLECALCIFEROL 1,000 UNIT TAB PO (09:16)
[2018-04-11] MEDS: METOCLOPRAMIDE 10 MG INJ IV (10:17)
[2018-04-11] MEDS: LORAZEPAM 0.5 MG TAB PO (10:22)
[2018-04-11] MEDS: DICYCLOMINE 10 MG CAP PO (13:09)
[2018-04-11] MEDS: SOD CHLORIDE 0.9% 1,000 ML IV (14:00)
[2018-04-11] MEDS: ONDANSETRON 4 MG INJ IV (18:22)
[2018-04-11] MEDS: ZOLPIDEM 5 MG TAB PO (21:58)
[2018-04-12] MEDS: HYDROmorphONE 2 MG/ML SYG IV ×3 (02:53→11:03)
[2018-04-12] MEDS: DEXTROSE 5%-0.45% NACL 1,000 ML IV ×2 (04:45→18:46)
[2018-04-12 05:09] LABS: ADD MAN DIFF? NO
[2018-04-12 05:18] LABS: BASOPHILS % 0.6 % (0.0-2.0); EOSINOPHILS # 0.4 10^3/ul (0.0-0.5); EOSINOPHILS % 5.8 % (0.0-7.0); HEMATOCRIT 33.3 % (37.0-47.0); HEMOGLOBIN 10.3 g/dl (12.0-16.0); LYMPHOCYTES # 1.1 10^3/ul (0.8-2.9); LYMPHOCYTES % 16.6 % (15.0-51.0); MEAN CORPUSCULAR HEMOGLOBIN 24.3 pg (29.0-33.0); MEAN CORPUSCULAR HGB CONC 30.9 g/dl (32.0-37.0); MEAN CORPUSCULAR VOLUME 78.5 fl (82.0-101.0); MEAN PLATELET VOLUME 9.5 fl (7.4-10.4); MONOCYTE # 0.1 10^3/ul (0.3-0.9); MONOCYTES % 1.5 % (0.0-11.0); NEUTROPHIL # 4.9 10^3/ul (1.6-7.5); NEUTROPHILS % 75.2 % (39.0-77.0); PLATELET COUNT 298 10^3/UL (140-415); RED BLOOD COUNT 4.24 10^6/ul (4.20-5.40); RED CELL DISTRIBUTION WIDTH 17.9 % (11.5-14.5)
[2018-04-12 05:18] LABS: WHITE BLOOD COUNT 6.5 10^3/ul (4.8-10.8)
[2018-04-12 05:28] LABS: ALANINE AMINOTRANSFERASE 13 IU/L (13-69); ALBUMIN 3.8 g/dl (3.3-4.9); ALBUMIN/GLOBULIN RATIO 1.31; ALKALINE PHOSPHATASE 49 IU/L (42-121); ANION GAP 11 (5-13); ASPARTATE AMINO TRANSFERASE 21 IU/L (15-46); BILIRUBIN,INDIRECT 1.4 mg/dl (0-1.1); BILIRUBIN,TOTAL 1.4 mg/dl (0.2-1.3); BLOOD UREA NITROGEN 7 mg/dl (7-20); CALCIUM 8.9 mg/dl (8.4-10.2); CARBON DIOXIDE 28 mmol/L (21-31); CHLORIDE 102 mmol/L (97-110); CREATININE 0.83 mg/dl (0.44-1.00); Estimated GFR > 60 mL/min (>60); GLUCOSE 99 mg/dl (70-220); POTASSIUM 3.5 mmol/L (3.5-5.1); SODIUM 141 mmol/L (135-144); TOTAL PROTEIN 6.7 g/dl (6.1-8.1)
[2018-04-12] MEDS: PANTOPRAZOLE (EC) 40 MG TAB PO (06:23)
[2018-04-12] MEDS: ONDANSETRON 4 MG INJ IV (07:14)
[2018-04-12] MEDS: PREGABALIN 50 MG CAP PO ×2 (09:02→20:15)
[2018-04-12] MEDS: CHOLECALCIFEROL 1,000 UNIT TAB PO (09:06)
[2018-04-12] MEDS: FLUOXETINE 20 MG CAP PO (09:06)
[2018-04-12] MEDS: morphine (ER) 30 MG TAB PO ×2 (09:06→21:44)
[2018-04-12] MEDS: AMLODIPINE 5 MG TAB PO (09:08)
[2018-04-12] MEDS: KELNOR PO (09:10)
[2018-04-12] MEDS: DIPHENHYD/MYLANTA/LIDO (PO SYG) PO (11:02)
[2018-04-12] MEDS: HYDROmorphONE 4 MG TAB PO ×2 (15:05→20:15)
[2018-04-12] MEDS: METOCLOPRAMIDE 10 MG INJ IV (15:11)
[2018-04-12] MEDS: LORAZEPAM 2 MG INJ IV (15:11)
[2018-04-12] MEDS: ZOLPIDEM 5 MG TAB PO (21:47)
[2018-04-13 05:29] LABS: ADD MAN DIFF? NO
[2018-04-13] MEDS: PANTOPRAZOLE (EC) 40 MG TAB PO (05:34)
[2018-04-13] MEDS: HYDROmorphONE 4 MG TAB PO (05:36)
[2018-04-13 05:41] LABS: BASOPHILS % 0.5 % (0.0-2.0); EOSINOPHILS # 0.2 10^3/ul (0.0-0.5); EOSINOPHILS % 3.8 % (0.0-7.0); HEMATOCRIT 34.1 % (37.0-47.0); HEMOGLOBIN 10.4 g/dl (12.0-16.0); LYMPHOCYTES # 1.4 10^3/ul (0.8-2.9); LYMPHOCYTES % 23.9 % (15.0-51.0); MEAN CORPUSCULAR HEMOGLOBIN 24.2 pg (29.0-33.0); MEAN CORPUSCULAR HGB CONC 30.5 g/dl (32.0-37.0); MEAN CORPUSCULAR VOLUME 79.5 fl (82.0-101.0); MEAN PLATELET VOLUME 9.3 fl (7.4-10.4); MONOCYTE # 0.1 10^3/ul (0.3-0.9); MONOCYTES % 1.8 % (0.0-11.0); NEUTROPHIL # 4.2 10^3/ul (1.6-7.5); NEUTROPHILS % 69.7 % (39.0-77.0); PLATELET COUNT 291 10^3/UL (140-415); RED BLOOD COUNT 4.29 10^6/ul (4.20-5.40); RED CELL DISTRIBUTION WIDTH 17.7 % (11.5-14.5)
[2018-04-13 05:54] LABS: ALANINE AMINOTRANSFERASE 29 IU/L (13-69); ALBUMIN 3.9 g/dl (3.3-4.9); ALBUMIN/GLOBULIN RATIO 1.25; ALKALINE PHOSPHATASE 56 IU/L (42-121); ANION GAP 8 (5-13); ASPARTATE AMINO TRANSFERASE 38 IU/L (15-46); BILIRUBIN,INDIRECT 1.1 mg/dl (0-1.1); BILIRUBIN,TOTAL 1.1 mg/dl (0.2-1.3); BLOOD UREA NITROGEN 5 mg/dl (7-20); CALCIUM 9.1 mg/dl (8.4-10.2); CARBON DIOXIDE 27 mmol/L (21-31); CHLORIDE 104 mmol/L (97-110); CREATININE 0.87 mg/dl (0.44-1.00); Estimated GFR > 60 mL/min (>60); GLUCOSE 106 mg/dl (70-220); POTASSIUM 3.8 mmol/L (3.5-5.1); SODIUM 139 mmol/L (135-144)
[2018-04-13] MEDS: ONDANSETRON 4 MG INJ IV ×2 (08:00→15:09)
[2018-04-13] MEDS: morphine (ER) 30 MG TAB PO (08:46)
[2018-04-13] MEDS: PREGABALIN 50 MG CAP PO (08:46)
[2018-04-13] MEDS: AMLODIPINE 5 MG TAB PO (08:46)
[2018-04-13] MEDS: DEXTROSE 5%-0.45% NACL 1,000 ML IV (09:21)
[2018-04-13] MEDS: CHOLECALCIFEROL 1,000 UNIT TAB PO (10:39)
[2018-04-13] MEDS: FLUOXETINE 20 MG CAP PO (10:39)
[2018-04-13] MEDS: KELNOR PO (10:39)
[2018-04-13] MEDS: POLYETHYLENE GLYCOL 17 GM PACKET PO (10:40)
[2018-04-13] MEDS: DIPHENHYD/MYLANTA/LIDO (PO SYG) PO (10:47)
[2018-04-13] MEDS ORDERED: AQUAPHOR 52.5 GM OINT TOP (12:00)
[2018-04-13] MEDS: HEPARIN (100 UNITS/ML) 5 ML SYG CATHETER (15:56)
[2018-04-13] MEDS ORDERED: SENNA TAB PO (21:00)
== END 2018-04-13 16:00 | disposition home or self-care (01) | DRG 357 ==
LOC: E/R 18:31 → MS1 21:23
PROC: 0T778DZ Dilation of Left Ureter with Intraluminal Device, Via Natural or Artificial Opening Endoscopic (ICD-10-PCS; principal; 2018-04-05 18:30)
PROC: BT14YZZ Fluoroscopy of Kidneys, Ureters and Bladder using Other Contrast (ICD-10-PCS; 2018-04-05 18:30)
PROC: 07BB3ZX Excision of Mesenteric Lymphatic, Percutaneous Approach, Diagnostic (ICD-10-PCS; 2018-04-05 19:14)
DX: C18.9 Malignant neoplasm of colon, unspecified (principal); C77.8 Secondary and unspecified malignant neoplasm of lymph nodes of multiple regions; C78.01 Secondary malignant neoplasm of right lung; N13.1 Hydronephrosis with ureteral stricture, not elsewhere classified; C77.2 Secondary and unspecified malignant neoplasm of intra-abdominal lymph nodes; K58.9 Irritable bowel syndrome, unspecified; R59.1 Generalized enlarged lymph nodes; G62.9 Polyneuropathy, unspecified; D64.9 Anemia, unspecified; Z90.49 Acquired absence of other specified parts of digestive tract
CPT/HCPCS: 36430; 71260; 74176; 74430; 77012; 80048; 80053; 83690; 84703; 85025; 85610; 85730; 86850; 86900; 86901; 86920; 86945; 87040; 87086; 88307; 88313; 88341; 88342; 96361; 96374; 96375; 96376; 99285-25; J9190; J9206

== ENCOUNTER 2018-04-27 22:56 | Observation (INO) | payer OTHER ==
[2018-04-27] MEDS ORDERED: morphine 4 MG/ML VIAL IV (23:11)
[2018-04-28] MEDS ORDERED: POLYETHYLENE GLYCOL 17 GM PACKET PO
[2018-04-28 00:11] LABS: ADD MAN DIFF? NO
[2018-04-28] MEDS: SOD CHLORIDE 0.9% 500 ML IV (00:12)
[2018-04-28] MEDS: ONDANSETRON 4 MG INJ IV ×4 (00:13→21:03)
[2018-04-28] MEDS: HYDROmorphONE 1 MG/ML SYG IV ×6 (00:14→15:54)
[2018-04-28] MEDS: METOCLOPRAMIDE 10 MG INJ IV ×6 (00:14→23:00)
[2018-04-28 00:17] LABS: BASOPHIL # 0.1 10^3/ul (0.0-0.1); BASOPHILS % 0.9 % (0.0-2.0); EOSINOPHILS % 0.4 % (0.0-7.0); HEMATOCRIT 38.6 % (37.0-47.0); HEMOGLOBIN 11.9 g/dl (12.0-16.0); LYMPHOCYTES # 0.7 10^3/ul (0.8-2.9); LYMPHOCYTES % 9.5 % (15.0-51.0); MEAN CORPUSCULAR HEMOGLOBIN 23.8 pg (29.0-33.0); MEAN CORPUSCULAR HGB CONC 30.8 g/dl (32.0-37.0); MEAN CORPUSCULAR VOLUME 77.2 fl (82.0-101.0); MEAN PLATELET VOLUME 8.8 fl (7.4-10.4); MONOCYTE # 0.4 10^3/ul (0.3-0.9); MONOCYTES % 6.1 % (0.0-11.0); NEUTROPHIL # 5.7 10^3/ul (1.6-7.5); NEUTROPHILS % 82.7 % (39.0-77.0); PLATELET COUNT 187 10^3/UL (140-415); RED CELL DISTRIBUTION WIDTH 19.3 % (11.5-14.5)
[2018-04-28 00:17] LABS: WHITE BLOOD COUNT 6.9 10^3/ul (4.8-10.8)
[2018-04-28 00:34] LABS: ADD UMIC YES; UR ASCORBIC ACID NEGATIVE (NEGATIVE); UR BACTERIA FEW /HPF (NONE SEEN); UR BILIRUBIN (Dip) NEGATIVE (NEGATIVE); UR BLOOD (Dip) 3+ mg/dL (NEGATIVE); UR CLARITY SLIGHTLY CLOUDY (CLEAR); UR COLOR YELLOW (YELLOW); UR GLUCOSE (Dip) NEGATIVE (NEGATIVE); UR KETONES (Dip) TRACE mg/dL (NEGATIVE); UR LEUKOCYTE ESTERASE (Dip) TRACE Leu/ul (NEGATIVE); UR MUCUS FEW /HPF (NONE SEEN); UR NITRITE (Dip) NEGATIVE (NEGATIVE); UR RBC > 182 /HPF (0-5); UR SPECIFIC GRAVITY (Dip) 1.016 (1.003-1.030); UR SQUAMOUS EPITHELIAL CELL FEW /HPF (FEW); UR TOTAL PROTEIN (Dip) 2+ mg/dl (NEGATIVE); UR UROBILINOGEN (Dip) 1+ mg/dL (NEGATIVE); UR WBC 28 /HPF (0-5)
[2018-04-28 00:38] LABS: INR 0.95; PROTIME 12.8 Sec (11.9-14.9)
[2018-04-28 00:39] LABS: PARTIAL THROMBOPLASTIN TIME 29.7 Sec (23.0-35.0)
[2018-04-28 00:40] LABS: ALANINE AMINOTRANSFERASE 41 IU/L (13-69); ALBUMIN 4.3 g/dl (3.3-4.9); ALBUMIN/GLOBULIN RATIO 1.16; ALKALINE PHOSPHATASE 75 IU/L (42-121); ANION GAP 11 (5-13); ASPARTATE AMINO TRANSFERASE 56 IU/L (15-46); BILIRUBIN,INDIRECT 0.4 mg/dl (0-1.1); BILIRUBIN,TOTAL 0.4 mg/dl (0.2-1.3); BLOOD UREA NITROGEN 17 mg/dl (7-20); CALCIUM 9.4 mg/dl (8.4-10.2); CARBON DIOXIDE 27 mmol/L (21-31); CHLORIDE 97 mmol/L (97-110); CREATININE 0.99 mg/dl (0.44-1.00); Estimated GFR > 60 mL/min (>60); GLUCOSE 155 mg/dl (70-220); LIPASE 130 U/L (23-300); POTASSIUM 4.1 mmol/L (3.5-5.1); SODIUM 135 mmol/L (135-144)
[2018-04-28] MEDS: D5W-0.45 NACL + KCL 20 MEQ 1,000 ML IV ×3 (01:52→15:44)
[2018-04-28] MEDS: ZOLPIDEM 5 MG TAB PO ×2 (02:07→23:00)
[2018-04-28] MEDS: PANTOPRAZOLE 40 MG INJ IV (05:34)
[2018-04-28 07:13] LABS: ANION GAP 12 (5-13); BLOOD UREA NITROGEN 11 mg/dl (7-20); CARBON DIOXIDE 25 mmol/L (21-31); CHLORIDE 100 mmol/L (97-110); Estimated GFR > 60 mL/min (>60); GLUCOSE 136 mg/dl (70-220); POTASSIUM 4.2 mmol/L (3.5-5.1); SODIUM 137 mmol/L (135-144)
[2018-04-28] MEDS ORDERED: morphine (ER) 30 MG TAB PO (09:00)
[2018-04-28] MEDS: CHOLECALCIFEROL 1,000 UNIT TAB PO (09:12)
[2018-04-28] MEDS: FLUOXETINE 20 MG CAP PO (09:12)
[2018-04-28] MEDS: morphine (ER) 15 MG TAB PO ×2 (09:12→21:05)
[2018-04-28] MEDS ORDERED: HYDROmorphONE 1 MG/ML SYG IV (17:30)
[2018-04-28] MEDS: HYDROmorphONE 2 MG/ML SYG IV ×2 (18:54→22:09)
[2018-04-28] MEDS: [UNRECOGNIZED DRUG - MIXTURE] PO (21:04)
[2018-04-28] MEDS: PREGABALIN 50 MG CAP PO (22:00)
[2018-04-29] MEDS: HYDROmorphONE 2 MG/ML SYG IV ×5 (01:11→13:38)
[2018-04-29] MEDS: LORAZEPAM 1 MG TAB PO (03:21)
[2018-04-29] MEDS: D5W-0.45 NACL + KCL 20 MEQ 1,000 ML IV (04:22)
[2018-04-29] MEDS: METOCLOPRAMIDE 10 MG INJ IV ×2 (05:23→12:11)
[2018-04-29] MEDS: ONDANSETRON 4 MG INJ IV (05:23)
[2018-04-29] MEDS: PANTOPRAZOLE 40 MG INJ IV (05:23)
[2018-04-29] MEDS: PREGABALIN 50 MG CAP PO (08:31)
[2018-04-29] MEDS: FLUOXETINE 20 MG CAP PO (08:32)
[2018-04-29] MEDS: CHOLECALCIFEROL 1,000 UNIT TAB PO (08:32)
[2018-04-29] MEDS: AMLODIPINE 10 MG TAB PO (08:32)
[2018-04-29] MEDS: morphine (ER) 15 MG TAB PO (09:40)
[2018-04-29] MEDS: HEPARIN (100 UNITS/ML) 5 ML SYG CATHETER (15:00)
[2018-04-29] MEDS ORDERED: morphine (ER) 30 MG TAB PO (21:00)
== END 2018-04-29 15:19 | disposition home or self-care (01) ==
LOC: PP2 23:48 → E/R 22:56
DX: R10.9 Unspecified abdominal pain (principal); C18.9 Malignant neoplasm of colon, unspecified; R91.1 Solitary pulmonary nodule; N13.30 Unspecified hydronephrosis; D64.9 Anemia, unspecified; N92.0 Excessive and frequent menstruation with regular cycle
CPT/HCPCS: 36415; 74176; 80048; 80053; 81001; 81025; 83690; 85025; 85610; 85730; 87086; 99285-25

== ENCOUNTER 2018-05-11 12:00 | Inpatient (IN) | payer OTHER ==
[2018-05-11] MEDS: SOD CHLORIDE 0.9% 1,000 ML IV (12:43)
[2018-05-11] MEDS: ONDANSETRON 4 MG INJ IV (12:43)
[2018-05-11] MEDS: HYDROmorphONE 0.5 MG/0.5 ML SYG IV ×2 (12:43→13:36)
[2018-05-11] MEDS ORDERED: ACETAMINOPHEN 325 MG TAB PO ×2 (13:00→17:00)
[2018-05-11] MEDS ORDERED: ONDANSETRON 4 MG INJ IV (13:00)
[2018-05-11 13:01] LABS: WHITE BLOOD COUNT 6.5 10^3/ul (4.8-10.8)
[2018-05-11 13:01] LABS: ABNORMAL IP MESSAGE 1; ADD MAN DIFF? NO; BASOPHILS % 0.3 % (0.0-2.0); EOSINOPHILS # 0.2 10^3/ul (0.0-0.5); EOSINOPHILS % 2.3 % (0.0-7.0); HEMATOCRIT 37.6 % (37.0-47.0); HEMOGLOBIN 11.9 g/dl (12.0-16.0); LYMPHOCYTES # 0.6 10^3/ul (0.8-2.9); LYMPHOCYTES % 9.1 % (15.0-51.0); MEAN CORPUSCULAR HEMOGLOBIN 23.8 pg (29.0-33.0); MEAN CORPUSCULAR HGB CONC 31.6 g/dl (32.0-37.0); MEAN CORPUSCULAR VOLUME 75.4 fl (82.0-101.0); MONOCYTE # 0.4 10^3/ul (0.3-0.9); MONOCYTES % 6.8 % (0.0-11.0); NEUTROPHIL # 5.3 10^3/ul (1.6-7.5); NEUTROPHILS % 80.9 % (39.0-77.0); PLATELET COUNT 359 10^3/UL (140-415); RED BLOOD COUNT 4.99 10^6/ul (4.20-5.40); RED CELL DISTRIBUTION WIDTH 18.8 % (11.5-14.5)
[2018-05-11 13:12] LABS: POSITIVE DIFF @See below
[2018-05-11 13:22] LABS: ALANINE AMINOTRANSFERASE 10 IU/L (13-69); ALBUMIN 3.9 g/dl (3.3-4.9); ALBUMIN/GLOBULIN RATIO 1.02; ALKALINE PHOSPHATASE 95 IU/L (42-121); ANION GAP 12 (5-13); ASPARTATE AMINO TRANSFERASE 18 IU/L (15-46); BILIRUBIN,INDIRECT 0.5 mg/dl (0-1.1); BILIRUBIN,TOTAL 0.5 mg/dl (0.2-1.3); BLOOD UREA NITROGEN 10 mg/dl (7-20); CALCIUM 9.4 mg/dl (8.4-10.2); CARBON DIOXIDE 27 mmol/L (21-31); CHLORIDE 94 mmol/L (97-110); CREATININE 0.65 mg/dl (0.44-1.00); Estimated GFR > 60 mL/min (>60); GLUCOSE 123 mg/dl (70-220); LIPASE 82 U/L (23-300); POTASSIUM 4.2 mmol/L (3.5-5.1); SODIUM 133 mmol/L (135-144); TOTAL PROTEIN 7.7 g/dl (6.1-8.1)
[2018-05-11] MEDS: HYDROmorphONE 1 MG/ML SYG IV ×2 (17:47→19:55)
[2018-05-11] MEDS: DEXTROSE 5%-0.45% NACL 1,000 ML IV (17:49)
[2018-05-11] MEDS: CLOTRIMAZOLE 10 MG TROCHE MM (17:51)
[2018-05-11 17:56] LABS: ADD UMIC YES; UR ASCORBIC ACID NEGATIVE (NEGATIVE); UR BILIRUBIN (Dip) NEGATIVE (NEGATIVE); UR BLOOD (Dip) NEGATIVE (NEGATIVE); UR CLARITY CLEAR (CLEAR); UR COLOR YELLOW (YELLOW); UR GLUCOSE (Dip) NEGATIVE (NEGATIVE); UR KETONES (Dip) 1+ mg/dL (NEGATIVE); UR LEUKOCYTE ESTERASE (Dip) NEGATIVE Leu/ul (NEGATIVE); UR NITRITE (Dip) NEGATIVE (NEGATIVE); UR RBC 1 /HPF (0-5); UR SPECIFIC GRAVITY (Dip) 1.013 (1.003-1.030); UR TOTAL PROTEIN (Dip) 3+ mg/dl (NEGATIVE); UR UROBILINOGEN (Dip) 1+ mg/dL (NEGATIVE); UR WBC 5 /HPF (0-5)
[2018-05-11] MEDS ORDERED: HYDROmorphONE 2 MG/ML SYG IV (20:00)
[2018-05-11] MEDS: SOD CHLORIDE 0.9% 100 ML (20:16)
[2018-05-11] MEDS: IOHEXOL 300MG/ML 150 ML BTL (20:17)
[2018-05-11] MEDS: FAMOTIDINE 20 MG TAB PO (20:23)
[2018-05-11] MEDS: PREGABALIN 25 MG CAP PO (20:23)
[2018-05-11] MEDS: morphine (ER) 15 MG TAB PO (20:24)
[2018-05-11] MEDS ORDERED: morphine (ER) 30 MG TAB PO (21:00)
[2018-05-11] MEDS: HYDROmorphONE 2 MG/ML SYG IV (22:01)
[2018-05-11] MEDS: ZOLPIDEM 5 MG TAB PO (23:17)
[2018-05-12] MEDS: HYDROmorphONE 2 MG/ML SYG IV ×2 (04:29→06:36)
[2018-05-12 05:42] LABS: ADD MAN DIFF? NO
[2018-05-12 05:54] LABS: WHITE BLOOD COUNT 5.2 10^3/ul (4.8-10.8)
[2018-05-12 05:54] LABS: BASOPHILS % 0.2 % (0.0-2.0); EOSINOPHILS # 0.2 10^3/ul (0.0-0.5); EOSINOPHILS % 3.8 % (0.0-7.0); HEMATOCRIT 34.8 % (37.0-47.0); LYMPHOCYTES # 1.2 10^3/ul (0.8-2.9); LYMPHOCYTES % 23.7 % (15.0-51.0); MEAN CORPUSCULAR HGB CONC 31.6 g/dl (32.0-37.0); MEAN CORPUSCULAR VOLUME 75.8 fl (82.0-101.0); MEAN PLATELET VOLUME 9.2 fl (7.4-10.4); MONOCYTE # 0.5 10^3/ul (0.3-0.9); MONOCYTES % 9.8 % (0.0-11.0); NEUTROPHIL # 3.2 10^3/ul (1.6-7.5); NEUTROPHILS % 62.1 % (39.0-77.0); PLATELET COUNT 330 10^3/UL (140-415); RED BLOOD COUNT 4.59 10^6/ul (4.20-5.40); RED CELL DISTRIBUTION WIDTH 19.1 % (11.5-14.5)
[2018-05-12] MEDS: CLOTRIMAZOLE 10 MG TROCHE MM ×3 (06:00→22:27)
[2018-05-12 06:28] LABS: ANION GAP 11 (5-13); BLOOD UREA NITROGEN 5 mg/dl (7-20); CALCIUM 8.8 mg/dl (8.4-10.2); CARBON DIOXIDE 27 mmol/L (21-31); CHLORIDE 99 mmol/L (97-110); CREATININE 0.62 mg/dl (0.44-1.00); Estimated GFR > 60 mL/min (>60); GLUCOSE 126 mg/dl (70-220); POTASSIUM 3.5 mmol/L (3.5-5.1); SODIUM 137 mmol/L (135-144)
[2018-05-12] MEDS ORDERED: HYDROmorphONE 0.2 MG/ML PCA IV (07:30)
[2018-05-12] MEDS: LACTOBACILLUS RHAMNOSUS CAP PO (08:29)
[2018-05-12] MEDS: FAMOTIDINE 20 MG TAB PO ×2 (08:30→21:09)
[2018-05-12] MEDS: CHOLECALCIFEROL 1,000 UNIT TAB PO (08:30)
[2018-05-12] MEDS: AMLODIPINE 10 MG TAB PO (08:30)
[2018-05-12] MEDS: FLUOXETINE 20 MG CAP PO (08:30)
[2018-05-12] MEDS: DEXTROSE 5%-0.45% NACL 1,000 ML IV (08:32)
[2018-05-12] MEDS: HYDROmorphONE 0.2 MG/ML PCA IV ×3 (08:39→20:58)
[2018-05-12] MEDS: ENOXAPARIN 40 MG/0.4 ML SYG SC (08:43)
[2018-05-12] MEDS ORDERED: NON-FORMULARY/PATIENT OWN MED (Linaclotide (Linzess) 290 MCG) XX (09:00)
[2018-05-12] MEDS: METHYLPREDNISOLONE 125 MG INJ IV ×2 (12:25→17:54)
[2018-05-12] MEDS: ACETAMINOPHEN 1000MG/100ML IV 100 ML IVPB ×2 (12:27→17:53)
[2018-05-12] MEDS: ALPRAZOLAM 0.25 MG TAB PO (13:05)
[2018-05-12] MEDS: morphine 2 MG INJ IV ×3 (13:37→22:24)
[2018-05-12] MEDS: traZODone 50 MG TAB PO (21:00)
[2018-05-13] MEDS: ACETAMINOPHEN 1000MG/100ML IV 100 ML IVPB ×2 (00:17→05:50)
[2018-05-13] MEDS: METHYLPREDNISOLONE 125 MG INJ IV ×4 (00:17→17:55)
[2018-05-13] MEDS: morphine 2 MG INJ IV ×4 (00:30→20:12)
[2018-05-13] MEDS: DEXTROSE 5%-0.45% NACL 1,000 ML IV ×3 (02:25→19:00)
[2018-05-13] MEDS: HYDROmorphONE 0.2 MG/ML PCA IV ×4 (03:22→21:55)
[2018-05-13] MEDS: ONDANSETRON 4 MG INJ IV ×4 (03:48→21:50)
[2018-05-13] MEDS: CLOTRIMAZOLE 10 MG TROCHE MM ×3 (05:50→21:04)
[2018-05-13 06:09] LABS: ADD MAN DIFF? NO
[2018-05-13 06:13] LABS: WHITE BLOOD COUNT 5.3 10^3/ul (4.8-10.8)
[2018-05-13 06:13] LABS: ABNORMAL IP MESSAGE 1; BASOPHILS % 0.2 % (0.0-2.0); HEMATOCRIT 32.3 % (37.0-47.0); HEMOGLOBIN 10.2 g/dl (12.0-16.0); LYMPHOCYTES # 0.5 10^3/ul (0.8-2.9); LYMPHOCYTES % 9.4 % (15.0-51.0); MEAN CORPUSCULAR HEMOGLOBIN 23.9 pg (29.0-33.0); MEAN CORPUSCULAR HGB CONC 31.6 g/dl (32.0-37.0); MEAN CORPUSCULAR VOLUME 75.6 fl (82.0-101.0); MEAN PLATELET VOLUME 8.9 fl (7.4-10.4); MONOCYTE # 0.1 10^3/ul (0.3-0.9); MONOCYTES % 1.1 % (0.0-11.0); NEUTROPHIL # 4.7 10^3/ul (1.6-7.5); NEUTROPHILS % 88.9 % (39.0-77.0); PLATELET COUNT 332 10^3/UL (140-415); RED BLOOD COUNT 4.27 10^6/ul (4.20-5.40); RED CELL DISTRIBUTION WIDTH 18.6 % (11.5-14.5)
[2018-05-13 06:26] LABS: POSITIVE DIFF @See below
[2018-05-13 06:40] LABS: ANION GAP 10 (5-13); BLOOD UREA NITROGEN 4 mg/dl (7-20); CALCIUM 8.4 mg/dl (8.4-10.2); CARBON DIOXIDE 25 mmol/L (21-31); CHLORIDE 103 mmol/L (97-110); CREATININE 0.46 mg/dl (0.44-1.00); Estimated GFR > 60 mL/min (>60); GLUCOSE 194 mg/dl (70-220); POTASSIUM 3.8 mmol/L (3.5-5.1); SODIUM 138 mmol/L (135-144)
[2018-05-13] MEDS: CHOLECALCIFEROL 1,000 UNIT TAB PO (08:41)
[2018-05-13] MEDS: FAMOTIDINE 20 MG TAB PO ×2 (08:41→20:12)
[2018-05-13] MEDS: FLUOXETINE 20 MG CAP PO (08:41)
[2018-05-13] MEDS: AMLODIPINE 10 MG TAB PO (08:41)
[2018-05-13] MEDS: LACTOBACILLUS RHAMNOSUS CAP PO (08:41)
[2018-05-13] MEDS: ENOXAPARIN 40 MG/0.4 ML SYG SC (09:27)
[2018-05-13] MEDS: traZODone 50 MG TAB PO (20:11)
[2018-05-13] MEDS: ZOLPIDEM 5 MG TAB PO (22:07)
[2018-05-14] MEDS: METHYLPREDNISOLONE 125 MG INJ IV ×5 (00:09→22:58)
[2018-05-14] MEDS: HYDROmorphONE 0.2 MG/ML PCA IV ×4 (04:19→21:28)
[2018-05-14] MEDS: CLOTRIMAZOLE 10 MG TROCHE MM ×3 (05:50→20:35)
[2018-05-14] MEDS: PANTOPRAZOLE (EC) 40 MG TAB PO (05:50)
[2018-05-14 06:06] LABS: ADD MAN DIFF? NO
[2018-05-14 06:11] LABS: WHITE BLOOD COUNT 10.6 10^3/ul (4.8-10.8)
[2018-05-14 06:11] LABS: ABNORMAL IP MESSAGE 1; BASOPHILS % 0.1 % (0.0-2.0); HEMATOCRIT 29.6 % (37.0-47.0); HEMOGLOBIN 9.4 g/dl (12.0-16.0); LYMPHOCYTES # 0.5 10^3/ul (0.8-2.9); LYMPHOCYTES % 4.6 % (15.0-51.0); MEAN CORPUSCULAR HEMOGLOBIN 24.4 pg (29.0-33.0); MEAN CORPUSCULAR HGB CONC 31.8 g/dl (32.0-37.0); MEAN CORPUSCULAR VOLUME 76.7 fl (82.0-101.0); MEAN PLATELET VOLUME 9.1 fl (7.4-10.4); MONOCYTE # 0.2 10^3/ul (0.3-0.9); MONOCYTES % 1.8 % (0.0-11.0); NEUTROPHIL # 9.9 10^3/ul (1.6-7.5); NEUTROPHILS % 93.1 % (39.0-77.0); PLATELET COUNT 276 10^3/UL (140-415); RED BLOOD COUNT 3.86 10^6/ul (4.20-5.40); RED CELL DISTRIBUTION WIDTH 19.6 % (11.5-14.5)
[2018-05-14 06:30] LABS: POSITIVE DIFF @See below
[2018-05-14 07:16] LABS: ANION GAP 9 (5-13); BLOOD UREA NITROGEN 8 mg/dl (7-20); CALCIUM 8.1 mg/dl (8.4-10.2); CARBON DIOXIDE 23 mmol/L (21-31); CHLORIDE 108 mmol/L (97-110); CREATININE 0.52 mg/dl (0.44-1.00); Estimated GFR > 60 mL/min (>60); GLUCOSE 191 mg/dl (70-220); SODIUM 140 mmol/L (135-144)
[2018-05-14 08:26] LABS: POTASSIUM 3.9 mmol/L (3.5-5.1)
[2018-05-14] MEDS: CHOLECALCIFEROL 1,000 UNIT TAB PO (08:48)
[2018-05-14] MEDS: FLUOXETINE 20 MG CAP PO (08:49)
[2018-05-14] MEDS: LACTOBACILLUS RHAMNOSUS CAP PO (08:49)
[2018-05-14] MEDS: AMLODIPINE 10 MG TAB PO (08:49)
[2018-05-14] MEDS: ENOXAPARIN 40 MG/0.4 ML SYG SC (09:06)
[2018-05-14] MEDS: DEXTROSE 5%-0.45% NACL 1,000 ML IV ×2 (09:53→11:40)
[2018-05-14] MEDS: [UNRECOGNIZED DRUG - OTHER] XX (10:30)
[2018-05-14] MEDS: ONDANSETRON 4 MG INJ IV ×2 (12:41→17:22)
[2018-05-14] MEDS: morphine 2 MG INJ IV ×3 (12:41→19:39)
[2018-05-14] MEDS: POLYETHYLENE GLYCOL 17 GM PACKET PO (12:51)
[2018-05-14] MEDS: LORAZEPAM 2 MG INJ IV (16:25)
[2018-05-14] MEDS: traZODone 50 MG TAB PO (20:36)
[2018-05-14] MEDS ORDERED: KELNOR PO (21:00)
[2018-05-14] MEDS: ZOLPIDEM 5 MG TAB PO (22:57)
[2018-05-15] MEDS: DEXTROSE 5%-0.45% NACL 1,000 ML IV ×2 (02:30→20:25)
[2018-05-15] MEDS: HYDROmorphONE 0.2 MG/ML PCA IV ×4 (03:19→21:58)
[2018-05-15] MEDS: PANTOPRAZOLE (EC) 40 MG TAB PO (05:10)
[2018-05-15] MEDS: CLOTRIMAZOLE 10 MG TROCHE MM ×3 (05:10→22:00)
[2018-05-15] MEDS: METHYLPREDNISOLONE 125 MG INJ IV ×4 (05:10→23:48)
[2018-05-15] MEDS: CHLORPROMAZINE 25 MG TAB PO ×2 (05:56→15:45)
[2018-05-15 06:46] LABS: ADD MAN DIFF? NO
[2018-05-15 06:49] LABS: ABNORMAL IP MESSAGE 1; BASOPHILS % 0.1 % (0.0-2.0); HEMATOCRIT 32.2 % (37.0-47.0); HEMOGLOBIN 10.2 g/dl (12.0-16.0); LYMPHOCYTES # 0.4 10^3/ul (0.8-2.9); LYMPHOCYTES % 4.5 % (15.0-51.0); MEAN CORPUSCULAR HEMOGLOBIN 24.3 pg (29.0-33.0); MEAN CORPUSCULAR HGB CONC 31.7 g/dl (32.0-37.0); MEAN CORPUSCULAR VOLUME 76.8 fl (82.0-101.0); MEAN PLATELET VOLUME 8.9 fl (7.4-10.4); MONOCYTE # 0.1 10^3/ul (0.3-0.9); MONOCYTES % 1.5 % (0.0-11.0); NEUTROPHIL # 8.6 10^3/ul (1.6-7.5); NEUTROPHILS % 93.7 % (39.0-77.0); PLATELET COUNT 381 10^3/UL (140-415); RED BLOOD COUNT 4.19 10^6/ul (4.20-5.40); RED CELL DISTRIBUTION WIDTH 20.1 % (11.5-14.5)
[2018-05-15 06:49] LABS: WHITE BLOOD COUNT 9.1 10^3/ul (4.8-10.8)
[2018-05-15 06:56] LABS: POSITIVE DIFF @See below
[2018-05-15 07:09] LABS: ANION GAP 8 (5-13); BLOOD UREA NITROGEN 14 mg/dl (7-20); CARBON DIOXIDE 28 mmol/L (21-31); CHLORIDE 101 mmol/L (97-110); CREATININE 0.61 mg/dl (0.44-1.00); Estimated GFR > 60 mL/min (>60); GLUCOSE 165 mg/dl (70-220); POTASSIUM 4.1 mmol/L (3.5-5.1); SODIUM 137 mmol/L (135-144)
[2018-05-15] MEDS: morphine 2 MG INJ IV ×3 (09:22→17:58)
[2018-05-15] MEDS: AMLODIPINE 10 MG TAB PO (09:25)
[2018-05-15] MEDS: LACTOBACILLUS RHAMNOSUS CAP PO (09:25)
[2018-05-15] MEDS: CHOLECALCIFEROL 1,000 UNIT TAB PO (09:25)
[2018-05-15] MEDS: FLUOXETINE 20 MG CAP PO (09:25)
[2018-05-15] MEDS: ENOXAPARIN 40 MG/0.4 ML SYG SC (09:27)
[2018-05-15] MEDS: ONDANSETRON 4 MG INJ IV ×2 (12:29→22:16)
[2018-05-15] MEDS: POLYETHYLENE GLYCOL 17 GM PACKET PO (15:46)
[2018-05-15] MEDS: LORAZEPAM 2 MG INJ IV (18:04)
[2018-05-15] MEDS: traZODone 50 MG TAB PO (22:00)
[2018-05-15] MEDS: ZOLPIDEM 5 MG TAB PO (22:16)
[2018-05-16] MEDS: CHLORPROMAZINE 25 MG TAB PO ×2 (00:57→21:21)
[2018-05-16] MEDS: HYDROmorphONE 0.2 MG/ML PCA IV ×4 (04:05→21:19)
[2018-05-16] MEDS: PANTOPRAZOLE (EC) 40 MG TAB PO (05:51)
[2018-05-16] MEDS: METHYLPREDNISOLONE 125 MG INJ IV ×2 (05:51→21:19)
[2018-05-16] MEDS: CLOTRIMAZOLE 10 MG TROCHE MM ×3 (05:52→21:19)
[2018-05-16] MEDS: FLUOXETINE 20 MG CAP PO (08:43)
[2018-05-16] MEDS: AMLODIPINE 10 MG TAB PO (08:44)
[2018-05-16] MEDS: LACTOBACILLUS RHAMNOSUS CAP PO (08:44)
[2018-05-16] MEDS: LORAZEPAM 2 MG INJ IV ×2 (08:44→19:06)
[2018-05-16] MEDS: CHOLECALCIFEROL 1,000 UNIT TAB PO (08:45)
[2018-05-16] MEDS: ENOXAPARIN 40 MG/0.4 ML SYG SC (08:45)
[2018-05-16] MEDS: HYDROmorphONE 2 MG/ML SYG IM (12:22)
[2018-05-16] MEDS: DEXTROSE 5%-0.45% NACL 1,000 ML IV (15:33)
[2018-05-16] MEDS: ONDANSETRON 4 MG INJ IV ×2 (15:37→21:19)
[2018-05-16] MEDS ORDERED: HYDROmorphONE 0.2 MG/ML PCA IV (17:00)
[2018-05-16] MEDS: GABAPENTIN 300 MG CAP PO (17:54)
[2018-05-16] MEDS: traZODone 50 MG TAB PO (21:19)
[2018-05-17] MEDS: HYDROmorphONE 0.2 MG/ML PCA IV ×4 (00:47→22:43)
[2018-05-17] MEDS: CLOTRIMAZOLE 10 MG TROCHE MM ×3 (06:09→21:55)
[2018-05-17] MEDS: PANTOPRAZOLE (EC) 40 MG TAB PO (06:09)
[2018-05-17] MEDS: DEXTROSE 5%-0.45% NACL 1,000 ML IV ×2 (06:19→23:09)
[2018-05-17] MEDS: METHYLPREDNISOLONE 125 MG INJ IV ×2 (09:00→21:19)
[2018-05-17] MEDS: GABAPENTIN 300 MG CAP PO (09:01)
[2018-05-17] MEDS: LACTOBACILLUS RHAMNOSUS CAP PO (09:01)
[2018-05-17] MEDS: FLUOXETINE 20 MG CAP PO (09:01)
[2018-05-17] MEDS: AMLODIPINE 10 MG TAB PO (09:01)
[2018-05-17] MEDS: CHOLECALCIFEROL 1,000 UNIT TAB PO (09:01)
[2018-05-17] MEDS: ENOXAPARIN 40 MG/0.4 ML SYG SC (09:07)
[2018-05-17] MEDS: AL HYDROX/MG HYDROX/SIMETH 30 ML CUP PO (14:34)
[2018-05-17] MEDS: CHLORPROMAZINE 25 MG TAB PO (16:45)
[2018-05-17] MEDS: ONDANSETRON 4 MG INJ IV (19:06)
[2018-05-17] MEDS: traZODone 50 MG TAB PO (21:19)
[2018-05-17] MEDS: LORAZEPAM 2 MG INJ IV (23:06)
[2018-05-18] MEDS: HYDROmorphONE 0.2 MG/ML PCA IV ×3 (05:04→23:48)
[2018-05-18] MEDS: PANTOPRAZOLE (EC) 40 MG TAB PO (05:40)
[2018-05-18] MEDS: CLOTRIMAZOLE 10 MG TROCHE MM ×3 (05:40→22:33)
[2018-05-18 06:45] LABS: ADD MAN DIFF? NO
[2018-05-18 07:02] LABS: ABNORMAL IP MESSAGE 1; HEMOGLOBIN 10.8 g/dl (12.0-16.0); LYMPHOCYTES # 0.2 10^3/ul (0.8-2.9); LYMPHOCYTES % 4.8 % (15.0-51.0); MEAN CORPUSCULAR HEMOGLOBIN 24.1 pg (29.0-33.0); MEAN CORPUSCULAR HGB CONC 30.9 g/dl (32.0-37.0); MEAN PLATELET VOLUME 8.7 fl (7.4-10.4); MONOCYTE # 0.2 10^3/ul (0.3-0.9); MONOCYTES % 5.1 % (0.0-11.0); NEUTROPHIL # 3.4 10^3/ul (1.6-7.5); NEUTROPHILS % 89.8 % (39.0-77.0); PLATELET COUNT 340 10^3/UL (140-415); RED BLOOD COUNT 4.49 10^6/ul (4.20-5.40); RED CELL DISTRIBUTION WIDTH 20.2 % (11.5-14.5)
[2018-05-18 07:02] LABS: WHITE BLOOD COUNT 3.7 10^3/ul (4.8-10.8)
[2018-05-18 07:04] LABS: POSITIVE DIFF @See below
[2018-05-18 07:32] LABS: ANION GAP 8 (5-13); BLOOD UREA NITROGEN 12 mg/dl (7-20); CALCIUM 8.5 mg/dl (8.4-10.2); CARBON DIOXIDE 31 mmol/L (21-31); CHLORIDE 99 mmol/L (97-110); CREATININE 0.59 mg/dl (0.44-1.00); Estimated GFR > 60 mL/min (>60); GLUCOSE 154 mg/dl (70-220); POTASSIUM 4.3 mmol/L (3.5-5.1); SODIUM 138 mmol/L (135-144)
[2018-05-18] MEDS: GABAPENTIN 300 MG CAP PO (09:56)
[2018-05-18] MEDS: LACTOBACILLUS RHAMNOSUS CAP PO (09:56)
[2018-05-18] MEDS: FLUOXETINE 20 MG CAP PO (09:56)
[2018-05-18] MEDS: CHOLECALCIFEROL 1,000 UNIT TAB PO (09:56)
[2018-05-18] MEDS: AMLODIPINE 10 MG TAB PO (09:57)
[2018-05-18] MEDS: METHYLPREDNISOLONE 125 MG INJ IV ×2 (09:57→22:33)
[2018-05-18] MEDS: ENOXAPARIN 40 MG/0.4 ML SYG SC (09:58)
[2018-05-18] MEDS: DEXTROSE 5%-0.45% NACL 1,000 ML IV ×2 (15:40→18:46)
[2018-05-18] MEDS: morphine SULFATE/PF (2 MG/2 ML) SYG IV ×2 (16:03→18:50)
[2018-05-18] MEDS: traZODone 50 MG TAB PO (22:33)
[2018-05-18] MEDS: LORAZEPAM 2 MG INJ IV (22:36)
[2018-05-19] MEDS: PANTOPRAZOLE (EC) 40 MG TAB PO (06:08)
[2018-05-19] MEDS: CLOTRIMAZOLE 10 MG TROCHE MM ×3 (06:08→21:52)
[2018-05-19] MEDS: HYDROmorphONE 0.2 MG/ML PCA IV ×3 (06:21→23:02)
[2018-05-19 06:54] LABS: ADD MAN DIFF? NO
[2018-05-19 07:01] LABS: WHITE BLOOD COUNT 3.6 10^3/ul (4.8-10.8)
[2018-05-19 07:01] LABS: ABNORMAL IP MESSAGE 1; HEMATOCRIT 37.2 % (37.0-47.0); HEMOGLOBIN 11.5 g/dl (12.0-16.0); LYMPHOCYTES # 0.2 10^3/ul (0.8-2.9); LYMPHOCYTES % 4.8 % (15.0-51.0); MEAN CORPUSCULAR HEMOGLOBIN 24.1 pg (29.0-33.0); MEAN CORPUSCULAR HGB CONC 30.9 g/dl (32.0-37.0); MEAN CORPUSCULAR VOLUME 77.8 fl (82.0-101.0); MEAN PLATELET VOLUME 8.7 fl (7.4-10.4); MONOCYTE # 0.2 10^3/ul (0.3-0.9); MONOCYTES % 5.6 % (0.0-11.0); NEUTROPHIL # 3.2 10^3/ul (1.6-7.5); NEUTROPHILS % 89.3 % (39.0-77.0); PLATELET COUNT 371 10^3/UL (140-415); RED BLOOD COUNT 4.78 10^6/ul (4.20-5.40); RED CELL DISTRIBUTION WIDTH 20.7 % (11.5-14.5)
[2018-05-19 07:02] LABS: POSITIVE DIFF @See below
[2018-05-19 07:24] LABS: ANION GAP 8 (5-13); BLOOD UREA NITROGEN 14 mg/dl (7-20); CALCIUM 8.7 mg/dl (8.4-10.2); CARBON DIOXIDE 31 mmol/L (21-31); CHLORIDE 99 mmol/L (97-110); CREATININE 0.56 mg/dl (0.44-1.00); Estimated GFR > 60 mL/min (>60); GLUCOSE 145 mg/dl (70-220); POTASSIUM 4.3 mmol/L (3.5-5.1); SODIUM 138 mmol/L (135-144)
[2018-05-19] MEDS: FLUOXETINE 20 MG CAP PO (09:17)
[2018-05-19] MEDS: AMLODIPINE 10 MG TAB PO (09:17)
[2018-05-19] MEDS: LACTOBACILLUS RHAMNOSUS CAP PO (09:17)
[2018-05-19] MEDS: CHOLECALCIFEROL 1,000 UNIT TAB PO (09:17)
[2018-05-19] MEDS: GABAPENTIN 300 MG CAP PO (09:17)
[2018-05-19] MEDS: METHYLPREDNISOLONE 125 MG INJ IV ×2 (09:18→21:57)
[2018-05-19] MEDS: ENOXAPARIN 40 MG/0.4 ML SYG SC (09:28)
[2018-05-19] MEDS: ONDANSETRON 4 MG INJ IV (13:22)
[2018-05-19] MEDS: DEXTROSE 5%-0.45% NACL 1,000 ML IV (17:13)
[2018-05-19] MEDS: morphine SULFATE/PF (2 MG/2 ML) SYG IV ×2 (18:08→22:02)
[2018-05-19] MEDS: traZODone 50 MG TAB PO (21:52)
[2018-05-20] MEDS: HYDROmorphONE 0.2 MG/ML PCA IV ×3 (05:19→17:53)
[2018-05-20] MEDS: PANTOPRAZOLE (EC) 40 MG TAB PO (05:24)
[2018-05-20] MEDS: CLOTRIMAZOLE 10 MG TROCHE MM ×3 (05:27→22:20)
[2018-05-20] MEDS: FLUOXETINE 20 MG CAP PO (08:55)
[2018-05-20] MEDS: LACTOBACILLUS RHAMNOSUS CAP PO (08:55)
[2018-05-20] MEDS: GABAPENTIN 300 MG CAP PO (08:55)
[2018-05-20] MEDS: AMLODIPINE 10 MG TAB PO (08:55)
[2018-05-20] MEDS: CHOLECALCIFEROL 1,000 UNIT TAB PO (08:55)
[2018-05-20] MEDS: METHYLPREDNISOLONE 125 MG INJ IV ×2 (08:56→20:56)
[2018-05-20] MEDS: ENOXAPARIN 40 MG/0.4 ML SYG SC (09:41)
[2018-05-20] MEDS: DEXTROSE 5%-0.45% NACL 1,000 ML IV (11:39)
[2018-05-20] MEDS: ONDANSETRON 4 MG INJ IV ×2 (13:00→22:20)
[2018-05-20 13:12] LABS: ADD MAN DIFF? NO
[2018-05-20 13:16] LABS: ABNORMAL IP MESSAGE 1; HEMATOCRIT 38.6 % (37.0-47.0); LYMPHOCYTES # 0.1 10^3/ul (0.8-2.9); LYMPHOCYTES % 3.8 % (15.0-51.0); MEAN CORPUSCULAR HEMOGLOBIN 24.4 pg (29.0-33.0); MEAN CORPUSCULAR HGB CONC 31.1 g/dl (32.0-37.0); MEAN CORPUSCULAR VOLUME 78.6 fl (82.0-101.0); MEAN PLATELET VOLUME 8.6 fl (7.4-10.4); MONOCYTE # 0.4 10^3/ul (0.3-0.9); MONOCYTES % 12.2 % (0.0-11.0); NEUTROPHIL # 2.4 10^3/ul (1.6-7.5); NEUTROPHILS % 83.3 % (39.0-77.0); PLATELET COUNT 373 10^3/UL (140-415); RED BLOOD COUNT 4.91 10^6/ul (4.20-5.40); RED CELL DISTRIBUTION WIDTH 21.3 % (11.5-14.5)
[2018-05-20 13:16] LABS: WHITE BLOOD COUNT 2.9 10^3/ul (4.8-10.8)
[2018-05-20 13:17] LABS: POSITIVE DIFF @See below
[2018-05-20 13:35] LABS: ANION GAP 10 (5-13); BLOOD UREA NITROGEN 16 mg/dl (7-20); CALCIUM 8.6 mg/dl (8.4-10.2); CARBON DIOXIDE 30 mmol/L (21-31); CHLORIDE 97 mmol/L (97-110); CREATININE 0.58 mg/dl (0.44-1.00); Estimated GFR > 60 mL/min (>60); GLUCOSE 223 mg/dl (70-220); POTASSIUM 4.3 mmol/L (3.5-5.1); SODIUM 137 mmol/L (135-144)
[2018-05-20] MEDS: morphine SULFATE/PF (2 MG/2 ML) SYG IV (20:54)
[2018-05-20] MEDS: traZODone 50 MG TAB PO (20:56)
[2018-05-20] MEDS: LORAZEPAM 4 MG/ML VIAL IV (22:20)
[2018-05-21] MEDS: DEXTROSE 5%-0.45% NACL 1,000 ML IV ×3 (04:52→23:32)
[2018-05-21] MEDS: PANTOPRAZOLE (EC) 40 MG TAB PO (06:02)
[2018-05-21] MEDS: CLOTRIMAZOLE 10 MG TROCHE MM ×3 (06:02→21:25)
[2018-05-21] MEDS: HYDROmorphONE 0.2 MG/ML PCA IV ×4 (06:04→20:08)
[2018-05-21 06:47] LABS: WHITE BLOOD COUNT 2.2 10^3/ul (4.8-10.8)
[2018-05-21 06:47] LABS: ABNORMAL IP MESSAGE 1; HEMATOCRIT 35.1 % (37.0-47.0); HEMOGLOBIN 11.1 g/dl (12.0-16.0); MEAN CORPUSCULAR HEMOGLOBIN 24.5 pg (29.0-33.0); MEAN CORPUSCULAR HGB CONC 31.6 g/dl (32.0-37.0); MEAN CORPUSCULAR VOLUME 77.5 fl (82.0-101.0); MEAN PLATELET VOLUME 8.6 fl (7.4-10.4); PLATELET COUNT 317 10^3/UL (140-415); RED BLOOD COUNT 4.53 10^6/ul (4.20-5.40); RED CELL DISTRIBUTION WIDTH 21.2 % (11.5-14.5)
[2018-05-21 06:48] LABS: ADD MAN DIFF? YES; POSITIVE DIFF @See below
[2018-05-21 07:22] LABS: ANION GAP 6 (5-13); BLOOD UREA NITROGEN 15 mg/dl (7-20); CALCIUM 8.4 mg/dl (8.4-10.2); CARBON DIOXIDE 31 mmol/L (21-31); CHLORIDE 99 mmol/L (97-110); CREATININE 0.54 mg/dl (0.44-1.00); Estimated GFR > 60 mL/min (>60); GLUCOSE 147 mg/dl (70-220); POTASSIUM 4.5 mmol/L (3.5-5.1); SODIUM 136 mmol/L (135-144)
[2018-05-21] MEDS: LACTOBACILLUS RHAMNOSUS CAP PO (08:27)
[2018-05-21] MEDS: FLUOXETINE 20 MG CAP PO (08:27)
[2018-05-21] MEDS: CHOLECALCIFEROL 1,000 UNIT TAB PO (08:27)
[2018-05-21] MEDS: GABAPENTIN 300 MG CAP PO (08:27)
[2018-05-21] MEDS: METHYLPREDNISOLONE 125 MG INJ IV ×2 (08:28→21:24)
[2018-05-21] MEDS: AMLODIPINE 10 MG TAB PO (08:28)
[2018-05-21] MEDS: ENOXAPARIN 40 MG/0.4 ML SYG SC (08:40)
[2018-05-21 09:43] LABS: BAND NEUTROPHILS #M 0.2 10^3/ul (0.0-0.6); BAND NEUTROPHILS % (M) 11 % (0-4); PLATELET ESTIMATE NORMAL; POIKILOCYTOSIS 1+ (0-0); PROMYELOCYTES % (M) 1 % (0-0)
[2018-05-21] MEDS: ONDANSETRON 4 MG INJ IV ×3 (09:51→21:23)
[2018-05-21 11:20] LABS: ANISOCYTOSIS 2+ (0-0); BURR CELLS 1+ (0-0); ERYTHROBLAST% (NRBC) (M) 1 % (0-0); LYMPHOCYTES #M 0.1 10^3/ul (0.8-2.9); LYMPHOCYTES % (M) 7 % (15-51); MICROCYTOSIS 2+ (0-0); MONOCYTE #M 0.4 10^3/ul (0.3-0.9); MONOCYTES % (M) 20 % (0-11); POLYCHROMASIA 3+ (0-0); REACTIVE LYMPHOCYTES% (M) 1 % (0-0); SEG NEUT #M 1.3 10^3/ul (1.6-7.5); SEGMENTED NEUTROPHILS (M) % 61 % (39-77); SMUDGE%M 4 % (0-0)
[2018-05-21] MEDS: AL HYDROX/MG HYDROX/SIMETH 30 ML CUP PO (14:26)
[2018-05-21] MEDS: LORAZEPAM 4 MG/ML VIAL IV (21:21)
[2018-05-21] MEDS: traZODone 50 MG TAB PO (21:25)
[2018-05-22] MEDS: HYDROmorphONE 0.2 MG/ML PCA IV ×4 (02:49→22:01)
[2018-05-22] MEDS: CLOTRIMAZOLE 10 MG TROCHE MM ×3 (06:10→20:38)
[2018-05-22] MEDS: PANTOPRAZOLE (EC) 40 MG TAB PO (06:10)
[2018-05-22] MEDS: GABAPENTIN 300 MG CAP PO (09:01)
[2018-05-22] MEDS: FLUOXETINE 20 MG CAP PO (09:01)
[2018-05-22] MEDS: CHOLECALCIFEROL 1,000 UNIT TAB PO (09:01)
[2018-05-22] MEDS: LACTOBACILLUS RHAMNOSUS CAP PO (09:01)
[2018-05-22] MEDS: METHYLPREDNISOLONE 125 MG INJ IV ×2 (09:01→20:38)
[2018-05-22] MEDS: AMLODIPINE 10 MG TAB PO (09:02)
[2018-05-22] MEDS: ENOXAPARIN 40 MG/0.4 ML SYG SC (09:05)
[2018-05-22] MEDS: ONDANSETRON 4 MG INJ IV ×3 (09:37→20:38)
[2018-05-22] MEDS: DEXTROSE 5%-0.45% NACL 1,000 ML IV ×2 (16:04→17:32)
[2018-05-22] MEDS: KELNOR PO (20:38)
[2018-05-22] MEDS: traZODone 50 MG TAB PO (20:38)
[2018-05-22] MEDS: morphine SULFATE/PF (2 MG/2 ML) SYG IV (20:38)
[2018-05-23] MEDS: morphine SULFATE/PF (2 MG/2 ML) SYG IV (01:26)
[2018-05-23] MEDS: ONDANSETRON 4 MG INJ IV ×3 (04:08→13:01)
[2018-05-23] MEDS: HYDROmorphONE 0.2 MG/ML PCA IV ×4 (04:20→23:29)
[2018-05-23] MEDS: PANTOPRAZOLE (EC) 40 MG TAB PO (06:05)
[2018-05-23] MEDS: CLOTRIMAZOLE 10 MG TROCHE MM ×3 (06:05→21:28)
[2018-05-23] MEDS: ENOXAPARIN 40 MG/0.4 ML SYG SC (09:03)
[2018-05-23] MEDS: METHYLPREDNISOLONE 125 MG INJ IV ×2 (09:05→21:28)
[2018-05-23] MEDS: FLUOXETINE 20 MG CAP PO (09:05)
[2018-05-23] MEDS: LACTOBACILLUS RHAMNOSUS CAP PO (09:05)
[2018-05-23] MEDS: GABAPENTIN 300 MG CAP PO (09:05)
[2018-05-23] MEDS: CHOLECALCIFEROL 1,000 UNIT TAB PO (09:05)
[2018-05-23] MEDS: AMLODIPINE 10 MG TAB PO (09:06)
[2018-05-23] MEDS: DEXTROSE 5%-0.45% NACL 1,000 ML IV ×2 (09:11→12:20)
[2018-05-23] MEDS: POLYETHYLENE GLYCOL 17 GM PACKET PO (18:57)
[2018-05-23] MEDS: KELNOR PO (21:00)
[2018-05-23] MEDS: traZODone 50 MG TAB PO (21:27)
[2018-05-23] MEDS: LORAZEPAM 4 MG/ML VIAL IV (21:58)
[2018-05-24] MEDS: DEXTROSE 5%-0.45% NACL 1,000 ML IV ×2 (02:41→21:40)
[2018-05-24] MEDS: CLOTRIMAZOLE 10 MG TROCHE MM ×3 (06:03→22:00)
[2018-05-24] MEDS: HYDROmorphONE 0.2 MG/ML PCA IV ×2 (06:03→13:13)
[2018-05-24] MEDS: PANTOPRAZOLE (EC) 40 MG TAB PO (06:03)
[2018-05-24] MEDS: LACTOBACILLUS RHAMNOSUS CAP PO (09:06)
[2018-05-24] MEDS: GABAPENTIN 300 MG CAP PO (09:06)
[2018-05-24] MEDS: CHOLECALCIFEROL 1,000 UNIT TAB PO (09:06)
[2018-05-24] MEDS: AMLODIPINE 10 MG TAB PO (09:06)
[2018-05-24] MEDS: FLUOXETINE 20 MG CAP PO (09:06)
[2018-05-24] MEDS: METHYLPREDNISOLONE 125 MG INJ IV ×2 (09:06→20:45)
[2018-05-24] MEDS: ENOXAPARIN 40 MG/0.4 ML SYG SC (09:09)
[2018-05-24] MEDS: ONDANSETRON 4 MG INJ IV ×2 (09:20→13:20)
[2018-05-24] MEDS: traZODone 50 MG TAB PO (20:45)
[2018-05-24] MEDS: KELNOR PO (20:50)
[2018-05-24] MEDS: LORAZEPAM 4 MG/ML VIAL IV (21:29)
[2018-05-25] MEDS: CLOTRIMAZOLE 10 MG TROCHE MM ×4 (00:01→22:06)
[2018-05-25] MEDS: HYDROmorphONE 0.2 MG/ML PCA IV ×4 (00:39→23:15)
[2018-05-25 05:30] LABS: ADD MAN DIFF? NO
[2018-05-25 05:37] LABS: ABNORMAL IP MESSAGE 1; BASOPHILS % 0.1 % (0.0-2.0); HEMATOCRIT 34.6 % (37.0-47.0); HEMOGLOBIN 11.2 g/dl (12.0-16.0); LYMPHOCYTES # 0.1 10^3/ul (0.8-2.9); LYMPHOCYTES % 1.7 % (15.0-51.0); MEAN CORPUSCULAR HEMOGLOBIN 24.6 pg (29.0-33.0); MEAN CORPUSCULAR HGB CONC 32.4 g/dl (32.0-37.0); MEAN PLATELET VOLUME 8.8 fl (7.4-10.4); NEUTROPHIL # 5.8 10^3/ul (1.6-7.5); NEUTROPHILS % 81.2 % (39.0-77.0); PLATELET COUNT 257 10^3/UL (140-415); RED BLOOD COUNT 4.55 10^6/ul (4.20-5.40); RED CELL DISTRIBUTION WIDTH 22.4 % (11.5-14.5)
[2018-05-25 05:37] LABS: WHITE BLOOD COUNT 7.1 10^3/ul (4.8-10.8)
[2018-05-25 05:55] LABS: POSITIVE DIFF @See below
[2018-05-25] MEDS: PANTOPRAZOLE (EC) 40 MG TAB PO (05:56)
[2018-05-25 06:05] LABS: ANION GAP 5 (5-13); BLOOD UREA NITROGEN 13 mg/dl (7-20); CALCIUM 8.1 mg/dl (8.4-10.2); CARBON DIOXIDE 30 mmol/L (21-31); CHLORIDE 99 mmol/L (97-110); Estimated GFR > 60 mL/min (>60); GLUCOSE 163 mg/dl (70-220); POTASSIUM 4.2 mmol/L (3.5-5.1); SODIUM 134 mmol/L (135-144)
[2018-05-25] MEDS: FLUOXETINE 20 MG CAP PO (09:07)
[2018-05-25] MEDS: CHOLECALCIFEROL 1,000 UNIT TAB PO (09:07)
[2018-05-25] MEDS: AMLODIPINE 10 MG TAB PO (09:07)
[2018-05-25] MEDS: LACTOBACILLUS RHAMNOSUS CAP PO (09:07)
[2018-05-25] MEDS: GABAPENTIN 300 MG CAP PO (09:07)
[2018-05-25] MEDS: METHYLPREDNISOLONE 125 MG INJ IV ×2 (09:08→20:29)
[2018-05-25] MEDS: ENOXAPARIN 40 MG/0.4 ML SYG SC (09:09)
[2018-05-25] MEDS: morphine SULFATE/PF (2 MG/2 ML) SYG IV (13:51)
[2018-05-25] MEDS: DEXTROSE 5%-0.45% NACL 1,000 ML IV ×3 (14:20→20:36)
[2018-05-25] MEDS: POLYETHYLENE GLYCOL 17 GM PACKET PO (18:27)
[2018-05-25] MEDS: traZODone 50 MG TAB PO (20:29)
[2018-05-25] MEDS: KELNOR PO (20:48)
[2018-05-25] MEDS: LORAZEPAM 4 MG/ML VIAL IV (22:06)
[2018-05-26] MEDS: PANTOPRAZOLE (EC) 40 MG TAB PO (05:27)
[2018-05-26] MEDS: HYDROmorphONE 0.2 MG/ML PCA IV ×3 (05:27→18:51)
[2018-05-26] MEDS: CLOTRIMAZOLE 10 MG TROCHE MM ×3 (05:27→21:00)
[2018-05-26 06:03] LABS: ADD MAN DIFF? NO
[2018-05-26 06:20] LABS: WHITE BLOOD COUNT 9.5 10^3/ul (4.8-10.8)
[2018-05-26 06:20] LABS: ABNORMAL IP MESSAGE 1; BASOPHILS % 0.2 % (0.0-2.0); HEMATOCRIT 35.1 % (37.0-47.0); HEMOGLOBIN 11.3 g/dl (12.0-16.0); LYMPHOCYTES # 0.1 10^3/ul (0.8-2.9); LYMPHOCYTES % 1.4 % (15.0-51.0); MEAN CORPUSCULAR HEMOGLOBIN 24.7 pg (29.0-33.0); MEAN CORPUSCULAR HGB CONC 32.2 g/dl (32.0-37.0); MEAN CORPUSCULAR VOLUME 76.6 fl (82.0-101.0); MEAN PLATELET VOLUME 8.6 fl (7.4-10.4); MONOCYTE # 0.9 10^3/ul (0.3-0.9); MONOCYTES % 9.9 % (0.0-11.0); NEUTROPHIL # 8.2 10^3/ul (1.6-7.5); NEUTROPHILS % 86.4 % (39.0-77.0); PLATELET COUNT 250 10^3/UL (140-415); RED BLOOD COUNT 4.58 10^6/ul (4.20-5.40); RED CELL DISTRIBUTION WIDTH 22.6 % (11.5-14.5)
[2018-05-26 06:35] LABS: POSITIVE DIFF @See below
[2018-05-26 07:08] LABS: ANION GAP 6 (5-13); BLOOD UREA NITROGEN 12 mg/dl (7-20); CALCIUM 8.4 mg/dl (8.4-10.2); CARBON DIOXIDE 31 mmol/L (21-31); CHLORIDE 98 mmol/L (97-110); CREATININE 0.48 mg/dl (0.44-1.00); Estimated GFR > 60 mL/min (>60); GLUCOSE 163 mg/dl (70-220); POTASSIUM 4.3 mmol/L (3.5-5.1); SODIUM 135 mmol/L (135-144)
[2018-05-26] MEDS: CHOLECALCIFEROL 1,000 UNIT TAB PO (08:49)
[2018-05-26] MEDS: GABAPENTIN 300 MG CAP PO (08:49)
[2018-05-26] MEDS: AMLODIPINE 10 MG TAB PO (08:49)
[2018-05-26] MEDS: FLUOXETINE 20 MG CAP PO (08:49)
[2018-05-26] MEDS: LACTOBACILLUS RHAMNOSUS CAP PO (08:49)
[2018-05-26] MEDS: METHYLPREDNISOLONE 125 MG INJ IV ×2 (08:50→21:00)
[2018-05-26] MEDS: ENOXAPARIN 40 MG/0.4 ML SYG SC (08:54)
[2018-05-26] MEDS: DEXTROSE 5%-0.45% NACL 1,000 ML IV (14:27)
[2018-05-26] MEDS: METOCLOPRAMIDE 10 MG TAB PO ×2 (15:13→21:06)
[2018-05-26] MEDS: POLYETHYLENE GLYCOL 17 GM PACKET PO (17:17)
[2018-05-26] MEDS: traZODone 50 MG TAB PO (21:00)
[2018-05-26] MEDS: KELNOR PO (21:00)
[2018-05-27] MEDS: HYDROmorphONE 0.2 MG/ML PCA IV ×4 (00:40→20:03)
[2018-05-27] MEDS: PANTOPRAZOLE (EC) 40 MG TAB PO (05:30)
[2018-05-27] MEDS: CLOTRIMAZOLE 10 MG TROCHE MM ×3 (05:30→21:00)
[2018-05-27] MEDS: DEXTROSE 5%-0.45% NACL 1,000 ML IV ×2 (07:28→23:40)
[2018-05-27] MEDS: METHYLPREDNISOLONE 125 MG INJ IV ×2 (09:22→20:59)
[2018-05-27] MEDS: GABAPENTIN 300 MG CAP PO (09:23)
[2018-05-27] MEDS: FLUOXETINE 20 MG CAP PO (09:23)
[2018-05-27] MEDS: AMLODIPINE 10 MG TAB PO (09:23)
[2018-05-27] MEDS: LACTOBACILLUS RHAMNOSUS CAP PO (09:23)
[2018-05-27] MEDS: CHOLECALCIFEROL 1,000 UNIT TAB PO (09:23)
[2018-05-27] MEDS: ENOXAPARIN 40 MG/0.4 ML SYG SC (09:36)
[2018-05-27] MEDS: KELNOR PO (20:59)
[2018-05-27] MEDS: METOCLOPRAMIDE 10 MG TAB PO (21:00)
[2018-05-27] MEDS: traZODone 50 MG TAB PO (21:00)
[2018-05-27] MEDS: LORAZEPAM 4 MG/ML VIAL IV (22:09)
[2018-05-28] MEDS: HYDROmorphONE 0.2 MG/ML PCA IV ×3 (02:30→19:35)
[2018-05-28] MEDS: CLOTRIMAZOLE 10 MG TROCHE MM ×3 (06:00→21:30)
[2018-05-28] MEDS: PANTOPRAZOLE (EC) 40 MG TAB PO (06:01)
[2018-05-28] MEDS: GABAPENTIN 300 MG CAP PO (08:42)
[2018-05-28] MEDS: CHOLECALCIFEROL 1,000 UNIT TAB PO (08:42)
[2018-05-28] MEDS: DEXTROSE 5%-0.45% NACL 1,000 ML IV ×2 (08:42→16:58)
[2018-05-28] MEDS: METHYLPREDNISOLONE 125 MG INJ IV ×2 (08:42→21:25)
[2018-05-28] MEDS: LACTOBACILLUS RHAMNOSUS CAP PO (08:42)
[2018-05-28] MEDS: FLUOXETINE 20 MG CAP PO (08:43)
[2018-05-28] MEDS: AMLODIPINE 10 MG TAB PO (08:43)
[2018-05-28] MEDS: ENOXAPARIN 40 MG/0.4 ML SYG SC (08:47)
[2018-05-28] MEDS: DIPHENHYD/MYLANTA/LIDO (PO SYG) PO ×2 (18:00→21:29)
[2018-05-28] MEDS: KELNOR PO (20:11)
[2018-05-28] MEDS: METOCLOPRAMIDE 10 MG TAB PO (21:23)
[2018-05-28] MEDS: traZODone 50 MG TAB PO (21:24)
[2018-05-28] MEDS: LORAZEPAM 4 MG/ML VIAL IV (22:14)
[2018-05-29] MEDS: DIPHENHYD/MYLANTA/LIDO (PO SYG) PO ×6 (01:00→20:54)
[2018-05-29] MEDS: DEXTROSE 5%-0.45% NACL 1,000 ML IV ×3 (01:40→18:20)
[2018-05-29] MEDS: HYDROmorphONE 0.2 MG/ML PCA IV ×4 (02:16→22:23)
[2018-05-29] MEDS: CLOTRIMAZOLE 10 MG TROCHE MM ×3 (06:00→20:55)
[2018-05-29] MEDS: PANTOPRAZOLE (EC) 40 MG TAB PO (06:25)
[2018-05-29] MEDS: LACTOBACILLUS RHAMNOSUS CAP PO (08:07)
[2018-05-29] MEDS: METHYLPREDNISOLONE 125 MG INJ IV ×2 (08:07→20:53)
[2018-05-29] MEDS: CHOLECALCIFEROL 1,000 UNIT TAB PO (08:08)
[2018-05-29] MEDS: FLUOXETINE 20 MG CAP PO (08:08)
[2018-05-29] MEDS: GABAPENTIN 300 MG CAP PO (08:08)
[2018-05-29] MEDS: AMLODIPINE 10 MG TAB PO (08:08)
[2018-05-29] MEDS: ENOXAPARIN 40 MG/0.4 ML SYG SC (08:11)
[2018-05-29] MEDS: KELNOR PO (20:54)
[2018-05-29] MEDS: traZODone 50 MG TAB PO (20:55)
[2018-05-29] MEDS: LORAZEPAM 4 MG/ML VIAL IV (21:41)
[2018-05-29] MEDS: METOCLOPRAMIDE 10 MG TAB PO (22:46)
[2018-05-30] MEDS: DIPHENHYD/MYLANTA/LIDO (PO SYG) PO ×6 (01:00→21:25)
[2018-05-30] MEDS: DEXTROSE 5%-0.45% NACL 1,000 ML IV ×2 (04:21→11:00)
[2018-05-30] MEDS: HYDROmorphONE 0.2 MG/ML PCA IV ×3 (05:09→18:12)
[2018-05-30] MEDS: PANTOPRAZOLE (EC) 40 MG TAB PO (05:10)
[2018-05-30] MEDS: CLOTRIMAZOLE 10 MG TROCHE MM ×3 (05:10→21:20)
[2018-05-30 05:46] LABS: ADD MAN DIFF? NO
[2018-05-30 05:50] LABS: WHITE BLOOD COUNT 10.3 10^3/ul (4.8-10.8)
[2018-05-30 05:50] LABS: ABNORMAL IP MESSAGE 1; BASOPHILS % 0.2 % (0.0-2.0); HEMATOCRIT 35.5 % (37.0-47.0); HEMOGLOBIN 11.7 g/dl (12.0-16.0); LYMPHOCYTES # 0.1 10^3/ul (0.8-2.9); LYMPHOCYTES % 0.8 % (15.0-51.0); MEAN CORPUSCULAR HEMOGLOBIN 25.5 pg (29.0-33.0); MEAN CORPUSCULAR VOLUME 77.3 fl (82.0-101.0); MEAN PLATELET VOLUME 8.8 fl (7.4-10.4); MONOCYTE # 0.5 10^3/ul (0.3-0.9); MONOCYTES % 4.7 % (0.0-11.0); NEUTROPHIL # 9.6 10^3/ul (1.6-7.5); NEUTROPHILS % 93.3 % (39.0-77.0); PLATELET COUNT 163 10^3/UL (140-415); RED BLOOD COUNT 4.59 10^6/ul (4.20-5.40); RED CELL DISTRIBUTION WIDTH 23.4 % (11.5-14.5)
[2018-05-30 05:55] LABS: POSITIVE DIFF @See below
[2018-05-30 06:07] LABS: ANION GAP 4 (5-13); BLOOD UREA NITROGEN 14 mg/dl (7-20); CALCIUM 8.4 mg/dl (8.4-10.2); CARBON DIOXIDE 31 mmol/L (21-31); CHLORIDE 98 mmol/L (97-110); Estimated GFR > 60 mL/min (>60); GLUCOSE 155 mg/dl (70-220); POTASSIUM 4.2 mmol/L (3.5-5.1); SODIUM 133 mmol/L (135-144)
[2018-05-30] MEDS: FLUOXETINE 20 MG CAP PO (09:49)
[2018-05-30] MEDS: METHYLPREDNISOLONE 125 MG INJ IV ×2 (09:49→21:21)
[2018-05-30] MEDS: LACTOBACILLUS RHAMNOSUS CAP PO (09:50)
[2018-05-30] MEDS: GABAPENTIN 300 MG CAP PO (09:50)
[2018-05-30] MEDS: CHOLECALCIFEROL 1,000 UNIT TAB PO (09:50)
[2018-05-30] MEDS: AMLODIPINE 10 MG TAB PO (09:50)
[2018-05-30] MEDS: ENOXAPARIN 40 MG/0.4 ML SYG SC (09:54)
[2018-05-30] MEDS: morphine SULFATE/PF (2 MG/2 ML) SYG IV ×2 (10:29→14:49)
[2018-05-30] MEDS: KELNOR PO (21:00)
[2018-05-30] MEDS: traZODone 50 MG TAB PO (21:20)
[2018-05-30] MEDS: LORAZEPAM 4 MG/ML VIAL IV (21:25)
[2018-05-31] MEDS: HYDROmorphONE 0.2 MG/ML PCA IV ×4 (00:38→20:09)
[2018-05-31] MEDS: DEXTROSE 5%-0.45% NACL 1,000 ML IV ×2 (00:41→18:52)
[2018-05-31] MEDS: DIPHENHYD/MYLANTA/LIDO (PO SYG) PO ×6 (00:42→21:03)
[2018-05-31] MEDS: CLOTRIMAZOLE 10 MG TROCHE MM ×3 (05:33→21:00)
[2018-05-31] MEDS: PANTOPRAZOLE (EC) 40 MG TAB PO (05:33)
[2018-05-31] MEDS: GABAPENTIN 300 MG CAP PO (09:13)
[2018-05-31] MEDS: CHOLECALCIFEROL 1,000 UNIT TAB PO (09:13)
[2018-05-31] MEDS: FLUOXETINE 20 MG CAP PO (09:13)
[2018-05-31] MEDS: LACTOBACILLUS RHAMNOSUS CAP PO (09:13)
[2018-05-31] MEDS: AMLODIPINE 10 MG TAB PO (09:13)
[2018-05-31] MEDS: METHYLPREDNISOLONE 125 MG INJ IV ×2 (09:14→21:03)
[2018-05-31] MEDS: ENOXAPARIN 40 MG/0.4 ML SYG SC (09:23)
[2018-05-31] MEDS: SOD FERRIC GLUC COMPLX 125 MG in SOD CHLORIDE 0.9% 100 ML IVPB (13:37)
[2018-05-31] MEDS: traZODone 50 MG TAB PO (21:00)
[2018-05-31] MEDS: KELNOR PO (21:00)
[2018-05-31] MEDS: LORAZEPAM 4 MG/ML VIAL IV (22:49)
[2018-06-01] MEDS: DIPHENHYD/MYLANTA/LIDO (PO SYG) PO ×6 (01:00→21:36)
[2018-06-01] MEDS: HYDROmorphONE 0.2 MG/ML PCA IV ×4 (03:03→22:38)
[2018-06-01] MEDS: PANTOPRAZOLE (EC) 40 MG TAB PO (06:27)
[2018-06-01] MEDS: CLOTRIMAZOLE 10 MG TROCHE MM ×3 (06:27→21:36)
[2018-06-01] MEDS: AMLODIPINE 10 MG TAB PO (08:21)
[2018-06-01] MEDS: GABAPENTIN 300 MG CAP PO (08:21)
[2018-06-01] MEDS: FLUOXETINE 20 MG CAP PO (08:22)
[2018-06-01] MEDS: CHOLECALCIFEROL 1,000 UNIT TAB PO (08:22)
[2018-06-01] MEDS: LACTOBACILLUS RHAMNOSUS CAP PO (08:22)
[2018-06-01] MEDS: METHYLPREDNISOLONE 125 MG INJ IV ×2 (08:25→21:37)
[2018-06-01] MEDS: ENOXAPARIN 40 MG/0.4 ML SYG SC (08:37)
[2018-06-01] MEDS: DEXTROSE 5%-0.45% NACL 1,000 ML IV (13:18)
[2018-06-01] MEDS: SOD FERRIC GLUC COMPLX 125 MG in SOD CHLORIDE 0.9% 100 ML IVPB (14:06)
[2018-06-01] MEDS: KELNOR PO (21:00)
[2018-06-01] MEDS: traZODone 50 MG TAB PO (21:36)
[2018-06-01] MEDS: LORAZEPAM 4 MG/ML VIAL IV (21:37)
[2018-06-02] MEDS: DIPHENHYD/MYLANTA/LIDO (PO SYG) PO ×6 (01:00→21:45)
[2018-06-02] MEDS: HYDROmorphONE 0.2 MG/ML PCA IV ×3 (05:06→17:57)
[2018-06-02] MEDS: PANTOPRAZOLE (EC) 40 MG TAB PO (05:47)
[2018-06-02] MEDS: CLOTRIMAZOLE 10 MG TROCHE MM ×3 (05:47→22:04)
[2018-06-02] MEDS: DEXTROSE 5%-0.45% NACL 1,000 ML IV (05:48)
[2018-06-02] MEDS: LACTOBACILLUS RHAMNOSUS CAP PO (08:44)
[2018-06-02] MEDS: CHOLECALCIFEROL 1,000 UNIT TAB PO (08:44)
[2018-06-02] MEDS: METHYLPREDNISOLONE 125 MG INJ IV ×2 (08:45→21:45)
[2018-06-02] MEDS: FLUOXETINE 20 MG CAP PO (08:45)
[2018-06-02] MEDS: AMLODIPINE 10 MG TAB PO (08:45)
[2018-06-02] MEDS: GABAPENTIN 300 MG CAP PO (08:45)
[2018-06-02] MEDS: ENOXAPARIN 40 MG/0.4 ML SYG SC (08:48)
[2018-06-02] MEDS: SOD FERRIC GLUC COMPLX 125 MG in SOD CHLORIDE 0.9% 100 ML IVPB (15:01)
[2018-06-02] MEDS: KELNOR PO (21:00)
[2018-06-02] MEDS: morphine LIQ (10 MG/5 ML) CUP PO (21:44)
[2018-06-02] MEDS: traZODone 50 MG TAB PO (21:45)
[2018-06-02] MEDS: DIPHENOXYLATE/ATROPINE TAB PO (21:45)
[2018-06-02] MEDS: LORAZEPAM 4 MG/ML VIAL IV (22:04)
[2018-06-03] MEDS: DIPHENHYD/MYLANTA/LIDO (PO SYG) PO ×6 (00:50→20:35)
[2018-06-03] MEDS: DEXTROSE 5%-0.45% NACL 1,000 ML IV ×3 (02:23→21:35)
[2018-06-03] MEDS: HYDROmorphONE 0.2 MG/ML PCA IV ×3 (05:41→19:32)
[2018-06-03] MEDS: PANTOPRAZOLE (EC) 40 MG TAB PO (06:28)
[2018-06-03] MEDS: CLOTRIMAZOLE 10 MG TROCHE MM ×3 (06:29→22:00)
[2018-06-03] MEDS: METHYLPREDNISOLONE 125 MG INJ IV ×2 (08:42→20:35)
[2018-06-03] MEDS: CHOLECALCIFEROL 1,000 UNIT TAB PO (08:42)
[2018-06-03] MEDS: GABAPENTIN 300 MG CAP PO (08:43)
[2018-06-03] MEDS: LACTOBACILLUS RHAMNOSUS CAP PO (08:43)
[2018-06-03] MEDS: AMLODIPINE 10 MG TAB PO (08:43)
[2018-06-03] MEDS: FLUOXETINE 20 MG CAP PO (08:43)
[2018-06-03] MEDS: ENOXAPARIN 40 MG/0.4 ML SYG SC (08:45)
[2018-06-03] MEDS: SOD FERRIC GLUC COMPLX 125 MG in SOD CHLORIDE 0.9% 100 ML IVPB (14:33)
[2018-06-03 14:57] LABS: ADD MAN DIFF? NO
[2018-06-03 14:59] LABS: ABNORMAL IP MESSAGE 1; HEMATOCRIT 35.7 % (37.0-47.0); HEMOGLOBIN 11.7 g/dl (12.0-16.0); LYMPHOCYTES # 0.1 10^3/ul (0.8-2.9); MEAN CORPUSCULAR HEMOGLOBIN 25.5 pg (29.0-33.0); MEAN CORPUSCULAR HGB CONC 32.8 g/dl (32.0-37.0); MEAN CORPUSCULAR VOLUME 77.8 fl (82.0-101.0); MEAN PLATELET VOLUME 9.6 fl (7.4-10.4); MONOCYTE # 0.4 10^3/ul (0.3-0.9); MONOCYTES % 5.6 % (0.0-11.0); NEUTROPHIL # 6.7 10^3/ul (1.6-7.5); PLATELET COUNT 147 10^3/UL (140-415); RED BLOOD COUNT 4.59 10^6/ul (4.20-5.40); RED CELL DISTRIBUTION WIDTH 24.2 % (11.5-14.5)
[2018-06-03 14:59] LABS: WHITE BLOOD COUNT 7.3 10^3/ul (4.8-10.8)
[2018-06-03 15:15] LABS: POSITIVE DIFF @See below
[2018-06-03 15:28] LABS: ANION GAP 7 (5-13); BLOOD UREA NITROGEN 11 mg/dl (7-20); CALCIUM 8.1 mg/dl (8.4-10.2); CARBON DIOXIDE 27 mmol/L (21-31); CHLORIDE 98 mmol/L (97-110); CREATININE 0.39 mg/dl (0.44-1.00); Estimated GFR > 60 mL/min (>60); GLUCOSE 162 mg/dl (70-220); POTASSIUM 3.5 mmol/L (3.5-5.1); SODIUM 132 mmol/L (135-144)
[2018-06-03] MEDS: traZODone 50 MG TAB PO (20:35)
[2018-06-03] MEDS: KELNOR PO (20:38)
[2018-06-03] MEDS: LORAZEPAM 4 MG/ML VIAL IV (22:00)
[2018-06-04] MEDS: DIPHENHYD/MYLANTA/LIDO (PO SYG) PO ×7 (01:00→21:18)
[2018-06-04] MEDS: HYDROmorphONE 0.2 MG/ML PCA IV ×4 (01:52→21:36)
[2018-06-04] MEDS: PANTOPRAZOLE (EC) 40 MG TAB PO (05:39)
[2018-06-04] MEDS: CLOTRIMAZOLE 10 MG TROCHE MM ×3 (05:40→21:11)
[2018-06-04 06:07] LABS: ADD MAN DIFF? NO
[2018-06-04 06:19] LABS: WHITE BLOOD COUNT 7.1 10^3/ul (4.8-10.8)
[2018-06-04 06:19] LABS: ABNORMAL IP MESSAGE 1; BASOPHILS % 0.1 % (0.0-2.0); HEMATOCRIT 37.3 % (37.0-47.0); HEMOGLOBIN 12.1 g/dl (12.0-16.0); LYMPHOCYTES # 0.2 10^3/ul (0.8-2.9); LYMPHOCYTES % 2.4 % (15.0-51.0); MEAN CORPUSCULAR HEMOGLOBIN 25.4 pg (29.0-33.0); MEAN CORPUSCULAR HGB CONC 32.4 g/dl (32.0-37.0); MEAN CORPUSCULAR VOLUME 78.4 fl (82.0-101.0); MONOCYTE # 0.6 10^3/ul (0.3-0.9); NEUTROPHIL # 6.2 10^3/ul (1.6-7.5); NEUTROPHILS % 86.8 % (39.0-77.0); PLATELET COUNT 155 10^3/UL (140-415); RED BLOOD COUNT 4.76 10^6/ul (4.20-5.40); RED CELL DISTRIBUTION WIDTH 23.9 % (11.5-14.5)
[2018-06-04 06:28] LABS: ANION GAP 6 (5-13); BLOOD UREA NITROGEN 10 mg/dl (7-20); CALCIUM 8.4 mg/dl (8.4-10.2); CARBON DIOXIDE 29 mmol/L (21-31); CHLORIDE 101 mmol/L (97-110); CREATININE 0.44 mg/dl (0.44-1.00); Estimated GFR > 60 mL/min (>60); GLUCOSE 124 mg/dl (70-220); POTASSIUM 3.6 mmol/L (3.5-5.1); SODIUM 136 mmol/L (135-144)
[2018-06-04 06:50] LABS: POSITIVE DIFF @See below
[2018-06-04] MEDS: DEXTROSE 5%-0.45% NACL 1,000 ML IV ×2 (07:40→16:11)
[2018-06-04] MEDS: ENOXAPARIN 40 MG/0.4 ML SYG SC (08:20)
[2018-06-04] MEDS: GABAPENTIN 300 MG CAP PO (08:24)
[2018-06-04] MEDS: LACTOBACILLUS RHAMNOSUS CAP PO (08:24)
[2018-06-04] MEDS: CHOLECALCIFEROL 1,000 UNIT TAB PO (08:24)
[2018-06-04] MEDS: AMLODIPINE 10 MG TAB PO (08:24)
[2018-06-04] MEDS: FLUOXETINE 20 MG CAP PO (08:24)
[2018-06-04] MEDS: METHYLPREDNISOLONE 125 MG INJ IV ×2 (08:25→21:09)
[2018-06-04] MEDS: SOD FERRIC GLUC COMPLX 125 MG in SOD CHLORIDE 0.9% 100 ML IVPB (13:23)
[2018-06-04] MEDS: KELNOR PO (21:00)
[2018-06-04] MEDS: traZODone 50 MG TAB PO (21:10)
[2018-06-04] MEDS: LORAZEPAM 4 MG/ML VIAL IV (21:18)
[2018-06-05] MEDS: DEXTROSE 5%-0.45% NACL 1,000 ML IV ×3 (00:20→17:00)
[2018-06-05] MEDS: DIPHENHYD/MYLANTA/LIDO (PO SYG) PO ×6 (00:55→21:03)
[2018-06-05] MEDS: HYDROmorphONE 0.2 MG/ML PCA IV (03:49)
[2018-06-05] MEDS: CLOTRIMAZOLE 10 MG TROCHE MM ×3 (05:55→22:09)
[2018-06-05] MEDS: PANTOPRAZOLE (EC) 40 MG TAB PO (05:55)
[2018-06-05] MEDS: morphine (ER) 15 MG TAB PO ×2 (08:24→20:32)
[2018-06-05] MEDS: CHOLECALCIFEROL 1,000 UNIT TAB PO (08:25)
[2018-06-05] MEDS: LACTOBACILLUS RHAMNOSUS CAP PO (08:25)
[2018-06-05] MEDS: AMLODIPINE 10 MG TAB PO (08:25)
[2018-06-05] MEDS: METHYLPREDNISOLONE 125 MG INJ IV ×2 (08:25→20:33)
[2018-06-05] MEDS: GABAPENTIN 300 MG CAP PO (08:25)
[2018-06-05] MEDS: FLUOXETINE 20 MG CAP PO (08:25)
[2018-06-05] MEDS: ENOXAPARIN 40 MG/0.4 ML SYG SC (08:28)
[2018-06-05] MEDS: traZODone 50 MG TAB PO (20:32)
[2018-06-05] MEDS: KELNOR PO (20:33)
[2018-06-05] MEDS: LORAZEPAM 4 MG/ML VIAL IV (22:09)
[2018-06-06] MEDS: DIPHENHYD/MYLANTA/LIDO (PO SYG) PO ×6 (01:00→21:02)
[2018-06-06] MEDS: DEXTROSE 5%-0.45% NACL 1,000 ML IV ×3 (01:04→17:38)
[2018-06-06] MEDS: PANTOPRAZOLE (EC) 40 MG TAB PO (05:48)
[2018-06-06] MEDS: CLOTRIMAZOLE 10 MG TROCHE MM ×3 (05:48→22:48)
[2018-06-06] MEDS: ENOXAPARIN 40 MG/0.4 ML SYG SC (08:54)
[2018-06-06] MEDS: LACTOBACILLUS RHAMNOSUS CAP PO (08:55)
[2018-06-06] MEDS: FLUOXETINE 20 MG CAP PO (08:55)
[2018-06-06] MEDS: GABAPENTIN 300 MG CAP PO (08:55)
[2018-06-06] MEDS: CHOLECALCIFEROL 1,000 UNIT TAB PO (08:56)
[2018-06-06] MEDS: METHYLPREDNISOLONE 125 MG INJ IV ×2 (08:56→21:02)
[2018-06-06] MEDS: morphine (ER) 15 MG TAB PO ×2 (08:56→21:02)
[2018-06-06] MEDS: AMLODIPINE 10 MG TAB PO (08:56)
[2018-06-06] MEDS: ALPRAZOLAM 0.25 MG TAB PO ×2 (11:28→21:01)
[2018-06-06] MEDS: HYDROmorphONE 2 MG TAB PO (18:48)
[2018-06-06] MEDS: KELNOR PO (21:00)
[2018-06-06] MEDS: traZODone 50 MG TAB PO (21:02)
[2018-06-06] MEDS: LORAZEPAM 4 MG/ML VIAL IV (22:49)
[2018-06-07] MEDS: DIPHENHYD/MYLANTA/LIDO (PO SYG) PO ×6 (01:00→21:30)
[2018-06-07] MEDS: CLOTRIMAZOLE 10 MG TROCHE MM ×3 (05:36→21:30)
[2018-06-07] MEDS: PANTOPRAZOLE (EC) 40 MG TAB PO (05:36)
[2018-06-07 07:46] LABS: ADD MAN DIFF? NO
[2018-06-07 08:15] LABS: ANION GAP 6 (5-13); BLOOD UREA NITROGEN 7 mg/dl (7-20); CALCIUM 8.4 mg/dl (8.4-10.2); CARBON DIOXIDE 32 mmol/L (21-31); CHLORIDE 100 mmol/L (97-110); CREATININE 0.41 mg/dl (0.44-1.00); Estimated GFR > 60 mL/min (>60); GLUCOSE 122 mg/dl (70-220); SODIUM 138 mmol/L (135-144)
[2018-06-07 08:22] LABS: WHITE BLOOD COUNT 7.6 10^3/ul (4.8-10.8)
[2018-06-07 08:22] LABS: ABNORMAL IP MESSAGE 1; BASOPHILS % 0.1 % (0.0-2.0); HEMATOCRIT 37.1 % (37.0-47.0); HEMOGLOBIN 12.2 g/dl (12.0-16.0); LYMPHOCYTES # 0.2 10^3/ul (0.8-2.9); LYMPHOCYTES % 2.6 % (15.0-51.0); MEAN CORPUSCULAR HGB CONC 32.9 g/dl (32.0-37.0); MEAN CORPUSCULAR VOLUME 79.1 fl (82.0-101.0); MEAN PLATELET VOLUME 9.1 fl (7.4-10.4); MONOCYTE # 0.6 10^3/ul (0.3-0.9); MONOCYTES % 7.7 % (0.0-11.0); NEUTROPHIL # 6.5 10^3/ul (1.6-7.5); NEUTROPHILS % 85.8 % (39.0-77.0); NUCLEATED RED BLOOD CELLS% 0.3 /100WBC (0.0-0.0); PLATELET COUNT 164 10^3/UL (140-415); RED BLOOD COUNT 4.69 10^6/ul (4.20-5.40); RED CELL DISTRIBUTION WIDTH 25.2 % (11.5-14.5)
[2018-06-07] MEDS: FLUOXETINE 10 MG CAP PO (08:22)
[2018-06-07] MEDS: METHYLPREDNISOLONE 125 MG INJ IV ×2 (08:22→21:29)
[2018-06-07] MEDS: CHOLECALCIFEROL 1,000 UNIT TAB PO (08:22)
[2018-06-07] MEDS: LACTOBACILLUS RHAMNOSUS CAP PO (08:22)
[2018-06-07] MEDS: AMLODIPINE 10 MG TAB PO (08:23)
[2018-06-07] MEDS: morphine (ER) 15 MG TAB PO ×2 (08:23→21:30)
[2018-06-07] MEDS: GABAPENTIN 300 MG CAP PO (08:23)
[2018-06-07] MEDS: ENOXAPARIN 40 MG/0.4 ML SYG SC (08:25)
[2018-06-07 08:33] LABS: POTASSIUM 2.8 mmol/L (3.5-5.1)
[2018-06-07 08:34] LABS: POSITIVE DIFF @See below
[2018-06-07] MEDS: DEXTROSE 5%-0.45% NACL 1,000 ML IV (10:01)
[2018-06-07 14:08] LABS: ANION GAP 10 (5-13); BLOOD UREA NITROGEN 8 mg/dl (7-20); CALCIUM 7.8 mg/dl (8.4-10.2); CARBON DIOXIDE 30 mmol/L (21-31); CHLORIDE 100 mmol/L (97-110); CREATININE 0.45 mg/dl (0.44-1.00); Estimated GFR > 60 mL/min (>60); GLUCOSE 247 mg/dl (70-220); SODIUM 140 mmol/L (135-144)
[2018-06-07 14:11] LABS: POTASSIUM 2.8 mmol/L (3.5-5.1)
[2018-06-07] MEDS: POTASSIUM CHLORIDE 100 ML IVPB (14:13)
[2018-06-07] MEDS: POTASSIUM CHLORIDE 20 MEQ POWDER FOR ORAL SOLN PO (14:13)
[2018-06-07] MEDS: HYDROmorphONE 2 MG TAB PO (14:13)
[2018-06-07 17:53] LABS: POTASSIUM 3.7 mmol/L (3.5-5.1)
[2018-06-07] MEDS: KELNOR PO (21:00)
[2018-06-07] MEDS: traZODone 50 MG TAB PO (21:30)
[2018-06-07] MEDS: LORAZEPAM 4 MG/ML VIAL IV (22:37)
[2018-06-08] MEDS: DIPHENHYD/MYLANTA/LIDO (PO SYG) PO ×5 (01:00→18:07)
[2018-06-08] MEDS: DEXTROSE 5%-0.45% NACL 1,000 ML IV ×2 (05:14→11:40)
[2018-06-08] MEDS: PANTOPRAZOLE (EC) 40 MG TAB PO (06:10)
[2018-06-08] MEDS: CLOTRIMAZOLE 10 MG TROCHE MM ×2 (06:10→14:12)
[2018-06-08 06:26] LABS: ADD MAN DIFF? NO
[2018-06-08 06:28] LABS: WHITE BLOOD COUNT 5.7 10^3/ul (4.8-10.8)
[2018-06-08 06:28] LABS: ABNORMAL IP MESSAGE 1; BASOPHILS % 0.2 % (0.0-2.0); HEMATOCRIT 31.5 % (37.0-47.0); HEMOGLOBIN 10.4 g/dl (12.0-16.0); LYMPHOCYTES # 0.1 10^3/ul (0.8-2.9); LYMPHOCYTES % 1.8 % (15.0-51.0); MEAN CORPUSCULAR HEMOGLOBIN 26.2 pg (29.0-33.0); MEAN CORPUSCULAR VOLUME 79.3 fl (82.0-101.0); MEAN PLATELET VOLUME 8.7 fl (7.4-10.4); MONOCYTE # 0.5 10^3/ul (0.3-0.9); MONOCYTES % 7.9 % (0.0-11.0); NEUTROPHIL # 4.9 10^3/ul (1.6-7.5); NEUTROPHILS % 85.9 % (39.0-77.0); PLATELET COUNT 121 10^3/UL (140-415); RED BLOOD COUNT 3.97 10^6/ul (4.20-5.40); RED CELL DISTRIBUTION WIDTH 25.9 % (11.5-14.5)
[2018-06-08 06:55] LABS: MAGNESIUM 1.6 mg/dl (1.7-2.5)
[2018-06-08 07:00] LABS: ANION GAP 7 (5-13); BLOOD UREA NITROGEN 9 mg/dl (7-20); CALCIUM 7.7 mg/dl (8.4-10.2); CARBON DIOXIDE 31 mmol/L (21-31); CHLORIDE 103 mmol/L (97-110); CREATININE 0.36 mg/dl (0.44-1.00); Estimated GFR > 60 mL/min (>60); GLUCOSE 126 mg/dl (70-220); POTASSIUM 3.2 mmol/L (3.5-5.1); SODIUM 141 mmol/L (135-144)
[2018-06-08] MEDS: GABAPENTIN 300 MG CAP PO (08:35)
[2018-06-08] MEDS: CHOLECALCIFEROL 1,000 UNIT TAB PO (08:35)
[2018-06-08] MEDS: FLUOXETINE 10 MG CAP PO (08:35)
[2018-06-08] MEDS: morphine (ER) 15 MG TAB PO (08:36)
[2018-06-08] MEDS: METHYLPREDNISOLONE 125 MG INJ IV (08:36)
[2018-06-08] MEDS: AMLODIPINE 10 MG TAB PO (08:36)
[2018-06-08] MEDS: LACTOBACILLUS RHAMNOSUS CAP PO (08:36)
[2018-06-08] MEDS: ENOXAPARIN 40 MG/0.4 ML SYG SC (08:41)
[2018-06-08] MEDS: MAGNESIUM SULFATE 2 GM/50 ML 50 ML IVPB (14:13)
[2018-06-08] MEDS: POTASSIUM CHLORIDE 20 MEQ POWDER FOR ORAL SOLN PO (14:13)
[2018-06-08] MEDS: ALPRAZOLAM 0.25 MG TAB PO (17:37)
[2018-06-08] MEDS: HEPARIN (100 UNITS/ML) 5 ML SYG CATHETER (18:05)
[2018-06-08] MEDS ORDERED: morphine (ER) 15 MG TAB PO (21:00)
[2018-06-09] MEDS ORDERED: morphine (ER) 15 MG TAB PO (09:00)
== END 2018-06-08 18:25 | disposition home or self-care (01) | DRG 375 ==
LOC: E/R 12:00 → 2NE 13:00
DX: C18.9 Malignant neoplasm of colon, unspecified (principal); C77.2 Secondary and unspecified malignant neoplasm of intra-abdominal lymph nodes; K76.6 Portal hypertension; N13.39 Other hydronephrosis; G89.3 Neoplasm related pain (acute) (chronic); D63.0 Anemia in neoplastic disease; E87.6 Hypokalemia; F32.9 Major depressive disorder, single episode, unspecified; G89.4 Chronic pain syndrome; I10 Essential (primary) hypertension; K59.00 Constipation, unspecified; K30 Functional dyspepsia; K12.1 Other forms of stomatitis; N23 Unspecified renal colic; N13.9 Obstructive and reflux uropathy, unspecified; Z96.0 Presence of urogenital implants; Z90.49 Acquired absence of other specified parts of digestive tract
CPT/HCPCS: 36415; 74177; 77014; 77290; 77334; 77412; 80048; 80053; 81001; 83690; 83735; 84132; 84703; 85025; 87075; 87177; 96374; 96375; 99285-25

== ENCOUNTER 2018-07-22 10:13 | Inpatient (IN) | payer OTHER ==
[2018-07-22] MEDS: HYDROmorphONE 0.5 MG/0.5 ML SYG IV (10:35)
[2018-07-22 10:44] LABS: ADD MAN DIFF? NO
[2018-07-22 10:46] LABS: WHITE BLOOD COUNT 13.8 10^3/ul (4.8-10.8)
[2018-07-22 10:46] LABS: BASOPHILS % 0.3 % (0.0-2.0); EOSINOPHILS # 0.1 10^3/ul (0.0-0.5); EOSINOPHILS % 0.5 % (0.0-7.0); HEMATOCRIT 37.9 % (37.0-47.0); HEMOGLOBIN 12.1 g/dl (12.0-16.0); LYMPHOCYTES # 1.1 10^3/ul (0.8-2.9); LYMPHOCYTES % 7.7 % (15.0-51.0); MEAN CORPUSCULAR HEMOGLOBIN 27.6 pg (29.0-33.0); MEAN CORPUSCULAR HGB CONC 31.9 g/dl (32.0-37.0); MEAN CORPUSCULAR VOLUME 86.3 fl (82.0-101.0); MEAN PLATELET VOLUME 8.4 fl (7.4-10.4); MONOCYTE # 1.2 10^3/ul (0.3-0.9); MONOCYTES % 8.9 % (0.0-11.0); NEUTROPHIL # 11.3 10^3/ul (1.6-7.5); NEUTROPHILS % 82.2 % (39.0-77.0); PLATELET COUNT 334 10^3/UL (140-415); RED BLOOD COUNT 4.39 10^6/ul (4.20-5.40); RED CELL DISTRIBUTION WIDTH 17.7 % (11.5-14.5)
[2018-07-22 11:04] LABS: ALBUMIN 3.7 g/dl (3.3-4.9); ALBUMIN/GLOBULIN RATIO 0.97; ALKALINE PHOSPHATASE 93 IU/L (42-121); ANION GAP 12 (5-13); ASPARTATE AMINO TRANSFERASE 18 IU/L (15-46); BILIRUBIN,INDIRECT 0.7 mg/dl (0-1.1); BILIRUBIN,TOTAL 0.7 mg/dl (0.2-1.3); BLOOD UREA NITROGEN 5 mg/dl (7-20); CALCIUM 9.7 mg/dl (8.4-10.2); CARBON DIOXIDE 27 mmol/L (21-31); CHLORIDE 100 mmol/L (97-110); CREATININE 0.51 mg/dl (0.44-1.00); Estimated GFR > 60 mL/min (>60); GLUCOSE 119 mg/dl (70-220); LIPASE 12 U/L (23-300); POTASSIUM 3.9 mmol/L (3.5-5.1); SODIUM 139 mmol/L (135-144); TOTAL PROTEIN 7.5 g/dl (6.1-8.1)
[2018-07-22 11:05] LABS: ALANINE AMINOTRANSFERASE < 6 IU/L (13-69)
[2018-07-22] MEDS: IOHEXOL 300MG/ML 150 ML BTL (12:31)
[2018-07-22] MEDS: SOD CHLORIDE 0.9% 100 ML (12:31)
[2018-07-22] MEDS ORDERED: HYDROmorphONE 1 MG/ML SYG (12:41)
[2018-07-22] MEDS: HYDROmorphONE 2 MG/ML SYG IV ×2 (12:58→13:39)
[2018-07-22 14:16] LABS: ADD UMIC NO; UR ASCORBIC ACID NEGATIVE (NEGATIVE); UR BILIRUBIN (Dip) NEGATIVE (NEGATIVE); UR BLOOD (Dip) NEGATIVE (NEGATIVE); UR CLARITY CLEAR (CLEAR); UR COLOR YELLOW (YELLOW); UR GLUCOSE (Dip) NEGATIVE (NEGATIVE); UR KETONES (Dip) 1+ mg/dL (NEGATIVE); UR LEUKOCYTE ESTERASE (Dip) NEGATIVE Leu/ul (NEGATIVE); UR NITRITE (Dip) NEGATIVE (NEGATIVE); UR SPECIFIC GRAVITY (Dip) > 1.060 (1.003-1.030); UR TOTAL PROTEIN (Dip) NEGATIVE (NEGATIVE); UR UROBILINOGEN (Dip) 2+ mg/dL (NEGATIVE)
[2018-07-22] MEDS ORDERED: ACETAMINOPHEN 325 MG TAB PO (15:00)
[2018-07-22] MEDS ORDERED: NACL 0.9% 3 ML SYG IV (15:00)
[2018-07-22] MEDS: HYDROmorphONE 1 MG/ML SYG IV ×5 (15:13→21:31)
[2018-07-22] MEDS: SOD CHLORIDE 0.9% 1,000 ML IV (16:00)
[2018-07-22] MEDS ORDERED: ALPRAZOLAM 0.5 MG TAB PO (20:00)
[2018-07-22] MEDS ORDERED: morphine (ER) 15 MG TAB PO ×2 (20:00)
[2018-07-22] MEDS: PREGABALIN 25 MG CAP PO (20:56)
[2018-07-22] MEDS: morphine (ER) 15 MG TAB PO (20:56)
[2018-07-22] MEDS: FAMOTIDINE 20 MG INJ IV (20:56)
[2018-07-22] MEDS ORDERED: morphine (ER) 30 MG TAB PO (21:00)
[2018-07-22] MEDS ORDERED: CIMETIDINE 300 MG TAB PO (21:00)
[2018-07-22] MEDS: LORAZEPAM 2 MG INJ IV (21:16)
[2018-07-23] MEDS: HYDROmorphONE 1 MG/ML SYG IV ×6 (00:24→10:50)
[2018-07-23] MEDS: SOD CHLORIDE 0.9% 1,000 ML IV ×4 (00:25→17:02)
[2018-07-23 05:01] LABS: ADD MAN DIFF? NO
[2018-07-23 05:15] LABS: WHITE BLOOD COUNT 10.5 10^3/ul (4.8-10.8)
[2018-07-23 05:15] LABS: BASOPHILS % 0.4 % (0.0-2.0); EOSINOPHILS # 0.2 10^3/ul (0.0-0.5); EOSINOPHILS % 1.7 % (0.0-7.0); HEMOGLOBIN 10.5 g/dl (12.0-16.0); LYMPHOCYTES % 9.9 % (15.0-51.0); MEAN CORPUSCULAR HEMOGLOBIN 27.9 pg (29.0-33.0); MEAN CORPUSCULAR HGB CONC 31.8 g/dl (32.0-37.0); MEAN CORPUSCULAR VOLUME 87.8 fl (82.0-101.0); MONOCYTE # 1.1 10^3/ul (0.3-0.9); MONOCYTES % 10.8 % (0.0-11.0); NEUTROPHILS % 76.6 % (39.0-77.0); PLATELET COUNT 267 10^3/UL (140-415); RED BLOOD COUNT 3.76 10^6/ul (4.20-5.40); RED CELL DISTRIBUTION WIDTH 17.7 % (11.5-14.5)
[2018-07-23 05:48] LABS: ALANINE AMINOTRANSFERASE 12 IU/L (13-69); ALBUMIN 2.9 g/dl (3.3-4.9); ALBUMIN/GLOBULIN RATIO 0.93; ALKALINE PHOSPHATASE 73 IU/L (42-121); ANION GAP 10 (5-13); ASPARTATE AMINO TRANSFERASE 14 IU/L (15-46); BILIRUBIN,INDIRECT 0.5 mg/dl (0-1.1); BILIRUBIN,TOTAL 0.5 mg/dl (0.2-1.3); BLOOD UREA NITROGEN 4 mg/dl (7-20); CALCIUM 8.8 mg/dl (8.4-10.2); CARBON DIOXIDE 27 mmol/L (21-31); CHLORIDE 103 mmol/L (97-110); CREATININE 0.47 mg/dl (0.44-1.00); Estimated GFR > 60 mL/min (>60); GLUCOSE 93 mg/dl (70-220); POTASSIUM 3.6 mmol/L (3.5-5.1); SODIUM 140 mmol/L (135-144)
[2018-07-23] MEDS: FLUOXETINE 20 MG CAP PO (08:52)
[2018-07-23] MEDS: AMLODIPINE 5 MG TAB PO (08:52)
[2018-07-23] MEDS: FAMOTIDINE 20 MG INJ IV ×2 (08:52→20:52)
[2018-07-23] MEDS: PREGABALIN 25 MG CAP PO ×2 (08:52→20:53)
[2018-07-23] MEDS: CHOLECALCIFEROL 1,000 UNIT TAB PO (08:53)
[2018-07-23] MEDS: ENOXAPARIN 30 MG/0.3 ML SYG SC (08:54)
[2018-07-23] MEDS: morphine (ER) 15 MG TAB PO ×2 (09:58→20:53)
[2018-07-23] MEDS: HYDROmorphONE 2 MG/ML SYG IV ×6 (12:58→23:24)
[2018-07-23] MEDS: POLYETHYLENE GLYCOL 17 GM PACKET PO (12:58)
[2018-07-23] MEDS: LORAZEPAM 2 MG INJ IV (20:52)
[2018-07-24] MEDS: HYDROmorphONE 2 MG/ML SYG IV ×5 (01:30→10:00)
[2018-07-24] MEDS: SOD CHLORIDE 0.9% 1,000 ML IV ×3 (03:35→17:00)
[2018-07-24 06:16] LABS: CARBON DIOXIDE 27 mmol/L (21-31); CHLORIDE 104 mmol/L (97-110); POTASSIUM 3.5 mmol/L (3.5-5.1); SODIUM 137 mmol/L (135-144)
[2018-07-24 06:17] LABS: ALANINE AMINOTRANSFERASE 12 IU/L (13-69); ALBUMIN 2.7 g/dl (3.3-4.9); ALKALINE PHOSPHATASE 76 IU/L (42-121); ANION GAP 6 (5-13); ASPARTATE AMINO TRANSFERASE 18 IU/L (15-46); BILIRUBIN,INDIRECT 0.3 mg/dl (0-1.1); BILIRUBIN,TOTAL 0.3 mg/dl (0.2-1.3); BLOOD UREA NITROGEN 3 mg/dl (7-20); CALCIUM 8.3 mg/dl (8.4-10.2); CREATININE 0.45 mg/dl (0.44-1.00); Estimated GFR > 60 mL/min (>60); GLUCOSE 98 mg/dl (70-220); TOTAL PROTEIN 5.7 g/dl (6.1-8.1)
[2018-07-24] MEDS: FLUOXETINE 20 MG CAP PO (09:04)
[2018-07-24] MEDS: CHOLECALCIFEROL 1,000 UNIT TAB PO (09:04)
[2018-07-24] MEDS: AMLODIPINE 5 MG TAB PO (09:05)
[2018-07-24] MEDS: morphine (ER) 15 MG TAB PO (09:05)
[2018-07-24] MEDS: FAMOTIDINE 20 MG INJ IV (09:05)
[2018-07-24] MEDS: ENOXAPARIN 30 MG/0.3 ML SYG SC (09:07)
[2018-07-24] MEDS: PREGABALIN 25 MG CAP PO ×2 (10:24→20:28)
[2018-07-24] MEDS: STIVARGA 40 MG PO (10:25)
[2018-07-24] MEDS: POLYETHYLENE GLYCOL 17 GM PACKET PO (11:58)
[2018-07-24] MEDS: HYDROmorphONE 0.2 MG/ML PCA IV (13:31)
[2018-07-24 19:09] LABS: INR 1.23; PROTIME 15.6 Sec (11.9-14.9); PT RATIO 1.2
[2018-07-24 19:10] LABS: PARTIAL THROMBOPLASTIN TIME 55.2 Sec (23.0-35.0)
[2018-07-24] MEDS: FAMOTIDINE 20 MG TAB PO (20:28)
[2018-07-24] MEDS: LORAZEPAM 2 MG INJ IV (21:40)
[2018-07-25] MEDS: SOD CHLORIDE 0.9% 1,000 ML IV ×4 (01:38→23:00)
[2018-07-25] MEDS: HYDROmorphONE 0.2 MG/ML PCA IV ×3 (01:38→16:35)
[2018-07-25] MEDS ORDERED: LIDOCAINE 2% (SDV) 5 ML INJ (07:00)
[2018-07-25] MEDS: FAMOTIDINE 20 MG TAB PO ×2 (08:08→21:28)
[2018-07-25] MEDS: FLUOXETINE 20 MG CAP PO (08:08)
[2018-07-25] MEDS: CHOLECALCIFEROL 1,000 UNIT TAB PO (08:08)
[2018-07-25] MEDS: PREGABALIN 25 MG CAP PO ×2 (08:08→21:28)
[2018-07-25] MEDS: AMLODIPINE 5 MG TAB PO (08:09)
[2018-07-25] MEDS: STIVARGA 40 MG PO (08:09)
[2018-07-25] MEDS: ENOXAPARIN 30 MG/0.3 ML SYG SC (08:17)
[2018-07-25 08:49] LABS: ADD MAN DIFF? NO
[2018-07-25 08:53] LABS: ABNORMAL IP MESSAGE 1; BASOPHILS % 0.4 % (0.0-2.0); EOSINOPHILS # 0.1 10^3/ul (0.0-0.5); EOSINOPHILS % 0.5 % (0.0-7.0); HEMATOCRIT 33.2 % (37.0-47.0); HEMOGLOBIN 10.5 g/dl (12.0-16.0); LYMPHOCYTES # 0.6 10^3/ul (0.8-2.9); LYMPHOCYTES % 5.7 % (15.0-51.0); MEAN CORPUSCULAR HEMOGLOBIN 27.7 pg (29.0-33.0); MEAN CORPUSCULAR HGB CONC 31.6 g/dl (32.0-37.0); MEAN CORPUSCULAR VOLUME 87.6 fl (82.0-101.0); MEAN PLATELET VOLUME 8.7 fl (7.4-10.4); MONOCYTE # 1.1 10^3/ul (0.3-0.9); MONOCYTES % 10.6 % (0.0-11.0); NEUTROPHIL # 8.6 10^3/ul (1.6-7.5); NEUTROPHILS % 82.3 % (39.0-77.0); PLATELET COUNT 284 10^3/UL (140-415); RED BLOOD COUNT 3.79 10^6/ul (4.20-5.40); RED CELL DISTRIBUTION WIDTH 16.9 % (11.5-14.5)
[2018-07-25 08:53] LABS: WHITE BLOOD COUNT 10.4 10^3/ul (4.8-10.8)
[2018-07-25 08:55] LABS: POSITIVE DIFF @See below
[2018-07-25 09:13] LABS: ALANINE AMINOTRANSFERASE 15 IU/L (13-69); ALBUMIN 2.7 g/dl (3.3-4.9); ALBUMIN/GLOBULIN RATIO 0.84; ALKALINE PHOSPHATASE 70 IU/L (42-121); ANION GAP 8 (5-13); ASPARTATE AMINO TRANSFERASE 12 IU/L (15-46); BILIRUBIN,INDIRECT 0.6 mg/dl (0-1.1); BILIRUBIN,TOTAL 0.6 mg/dl (0.2-1.3); CALCIUM 8.3 mg/dl (8.4-10.2); CARBON DIOXIDE 25 mmol/L (21-31); CHLORIDE 103 mmol/L (97-110); CREATININE 0.41 mg/dl (0.44-1.00); Estimated GFR > 60 mL/min (>60); GLUCOSE 131 mg/dl (70-220); POTASSIUM 3.3 mmol/L (3.5-5.1); SODIUM 136 mmol/L (135-144); TOTAL PROTEIN 5.9 g/dl (6.1-8.1)
[2018-07-25 09:25] LABS: BLOOD UREA NITROGEN < 2 mg/dl (7-20)
[2018-07-25] MEDS: AMPICILLIN 2 GM/NS (PMX) 100 ML IVPB ×2 (16:42→20:23)
[2018-07-25] MEDS ORDERED: PROPOFOL 100 ML (17:26)
[2018-07-25] MEDS ORDERED: ROCURONIUM 50 MG INJ (17:28)
[2018-07-25] MEDS ORDERED: FENTAnyl 50 MCG/ML VIAL (17:28)
[2018-07-25] MEDS ORDERED: DEXAMETHASONE 4 MG/ML 5 ML INJ (18:05)
[2018-07-25] MEDS ORDERED: ONDANSETRON 4 MG INJ (18:05)
[2018-07-25] MEDS ORDERED: MIDAZOLAM 1 MG/ML 2 ML INJ (18:10)
[2018-07-25] MEDS ORDERED: GLYCOPYRROLATE 0.4 MG INJ (18:22)
[2018-07-25] MEDS ORDERED: CEFAZOLIN 1 GM INJ (18:22)
[2018-07-25] MEDS ORDERED: NEOSTIGMINE 10 MG INJ (18:22)
[2018-07-25] MEDS ORDERED: DIPHENHYDRAMINE 50 MG INJ IV (19:00)
[2018-07-25] MEDS ORDERED: MIDAZOLAM 1 MG/ML 2 ML INJ IV (19:00)
[2018-07-25] MEDS ORDERED: ALBUTEROL 0.083% (NEB) 2.5 MG/3 ML AMP HHN (19:00)
[2018-07-25] MEDS ORDERED: HYDROmorphONE 1 MG/5 ML IV SYRINGE IV ×3 (19:00)
[2018-07-25] MEDS ORDERED: METOCLOPRAMIDE 10 MG INJ IV (19:00)
[2018-07-25] MEDS ORDERED: OXYCODONE/ACETAMINOPHEN (5/325) TAB PO ×2 (19:00)
[2018-07-25] MEDS ORDERED: KETOROLAC 30 MG INJ IV (19:00)
[2018-07-25] MEDS ORDERED: LABETALOL HCL 20MG INJ IV (19:00)
[2018-07-25] MEDS ORDERED: hydrALAzine 20 MG INJ IV (19:00)
[2018-07-25] MEDS ORDERED: FENTAnyl 50 MCG/ML VIAL IV ×3 (19:00)
[2018-07-25] MEDS ORDERED: MEPERIDINE 25 MG INJ IV (19:00)
[2018-07-25] MEDS ORDERED: ONDANSETRON 4 MG INJ IV (19:00)
[2018-07-25] MEDS ORDERED: EPHEDrine SULFATE 50 MG/5 ML SYG IV (19:00)
[2018-07-25] MEDS: ONDANSETRON 4 MG INJ IV (21:26)
[2018-07-25] MEDS: POTASSIUM CHLORIDE 100 ML IVPB (21:34)
[2018-07-25] MEDS: LORAZEPAM 2 MG INJ IV (22:38)
[2018-07-26] MEDS: AMPICILLIN 2 GM/NS (PMX) 100 ML IVPB ×3 (00:53→12:15)
[2018-07-26] MEDS: SOD CHLORIDE 0.9% 1,000 ML IV ×3 (04:17→18:35)
[2018-07-26] MEDS: HYDROmorphONE 0.2 MG/ML PCA IV ×3 (04:20→22:51)
[2018-07-26 05:11] LABS: ADD MAN DIFF? NO
[2018-07-26 05:17] LABS: WHITE BLOOD COUNT 7.8 10^3/ul (4.8-10.8)
[2018-07-26 05:17] LABS: ABNORMAL IP MESSAGE 1; BASOPHILS % 0.1 % (0.0-2.0); HEMATOCRIT 32.1 % (37.0-47.0); HEMOGLOBIN 10.2 g/dl (12.0-16.0); LYMPHOCYTES # 0.5 10^3/ul (0.8-2.9); LYMPHOCYTES % 6.4 % (15.0-51.0); MEAN CORPUSCULAR HEMOGLOBIN 27.2 pg (29.0-33.0); MEAN CORPUSCULAR HGB CONC 31.8 g/dl (32.0-37.0); MEAN CORPUSCULAR VOLUME 85.6 fl (82.0-101.0); MEAN PLATELET VOLUME 8.8 fl (7.4-10.4); MONOCYTE # 0.1 10^3/ul (0.3-0.9); MONOCYTES % 1.4 % (0.0-11.0); NEUTROPHIL # 7.1 10^3/ul (1.6-7.5); NEUTROPHILS % 91.6 % (39.0-77.0); PLATELET COUNT 282 10^3/UL (140-415); RED BLOOD COUNT 3.75 10^6/ul (4.20-5.40); RED CELL DISTRIBUTION WIDTH 16.9 % (11.5-14.5)
[2018-07-26 05:50] LABS: ANION GAP 9 (5-13); BLOOD UREA NITROGEN 2 mg/dl (7-20); CALCIUM 8.5 mg/dl (8.4-10.2); CARBON DIOXIDE 26 mmol/L (21-31); CHLORIDE 105 mmol/L (97-110); CREATININE 0.44 mg/dl (0.44-1.00); Estimated GFR > 60 mL/min (>60); GLUCOSE 127 mg/dl (70-220); SODIUM 140 mmol/L (135-144)
[2018-07-26 05:54] LABS: POSITIVE DIFF @See below
[2018-07-26] MEDS: STIVARGA 40 MG PO (08:38)
[2018-07-26] MEDS: FAMOTIDINE 20 MG TAB PO ×2 (08:50→22:38)
[2018-07-26] MEDS: FLUOXETINE 20 MG CAP PO (08:50)
[2018-07-26] MEDS: AMLODIPINE 5 MG TAB PO (08:51)
[2018-07-26] MEDS: CHOLECALCIFEROL 1,000 UNIT TAB PO (08:51)
[2018-07-26] MEDS: ENOXAPARIN 30 MG/0.3 ML SYG SC (08:53)
[2018-07-26] MEDS: PREGABALIN 25 MG CAP PO ×2 (09:04→23:11)
[2018-07-26] MEDS: ONDANSETRON 4 MG INJ IV ×3 (09:04→22:42)
[2018-07-26] MEDS: POLYETHYLENE GLYCOL 17 GM PACKET PO (12:15)
[2018-07-26] MEDS: AMOXICILLIN 500 MG CAP PO ×2 (16:37→22:38)
[2018-07-26] MEDS ORDERED: AMPICILLIN 1 GM/NS (PMX) 50 ML IVPB (18:00)
[2018-07-26] MEDS: LORAZEPAM 2 MG INJ IV (22:38)
[2018-07-26] MEDS: AMPICILLIN 1 GM/NS (PMX) 50 ML IVPB (23:51)
[2018-07-27] MEDS: SOD CHLORIDE 0.9% 1,000 ML IV ×2 (03:22→14:56)
[2018-07-27] MEDS: AMPICILLIN 1 GM/NS (PMX) 50 ML IVPB ×3 (05:03→17:40)
[2018-07-27] MEDS: DOCUSATE SODIUM 100 MG CAP PO (06:51)
[2018-07-27] MEDS: AMOXICILLIN 500 MG CAP PO ×3 (06:51→21:46)
[2018-07-27] MEDS: HYDROmorphONE 0.2 MG/ML PCA IV ×2 (08:23→17:01)
[2018-07-27] MEDS: STIVARGA 40 MG PO (09:00)
[2018-07-27] MEDS: PREGABALIN 25 MG CAP PO ×2 (09:50→21:46)
[2018-07-27] MEDS: CHOLECALCIFEROL 1,000 UNIT TAB PO (09:51)
[2018-07-27] MEDS: FAMOTIDINE 20 MG TAB PO ×2 (09:51→21:46)
[2018-07-27] MEDS: FLUOXETINE 20 MG CAP PO (09:51)
[2018-07-27] MEDS: ENOXAPARIN 30 MG/0.3 ML SYG SC (09:53)
[2018-07-27] MEDS: AMLODIPINE 5 MG TAB PO (09:54)
[2018-07-27] MEDS: ALPRAZOLAM 0.25 MG TAB PO (16:06)
[2018-07-27] MEDS: LORAZEPAM 2 MG INJ IV (21:45)
[2018-07-27] MEDS: ONDANSETRON 4 MG INJ IV (21:45)
[2018-07-28] MEDS: AMPICILLIN 1 GM/NS (PMX) 50 ML IVPB ×4 (00:11→18:27)
[2018-07-28] MEDS: SOD CHLORIDE 0.9% 1,000 ML IV ×4 (01:15→23:48)
[2018-07-28] MEDS: HYDROmorphONE 0.2 MG/ML PCA IV ×3 (03:59→20:08)
[2018-07-28] MEDS: AMOXICILLIN 500 MG CAP PO ×2 (05:27→14:11)
[2018-07-28] MEDS: STIVARGA 40 MG PO (08:24)
[2018-07-28] MEDS: PREGABALIN 25 MG CAP PO ×2 (08:24→20:15)
[2018-07-28] MEDS: CHOLECALCIFEROL 1,000 UNIT TAB PO (08:25)
[2018-07-28] MEDS: AMLODIPINE 5 MG TAB PO (08:25)
[2018-07-28] MEDS: FAMOTIDINE 20 MG TAB PO ×2 (08:25→20:15)
[2018-07-28] MEDS: FLUOXETINE 20 MG CAP PO (08:29)
[2018-07-28] MEDS: ENOXAPARIN 30 MG/0.3 ML SYG SC (08:31)
[2018-07-28] MEDS: POLYETHYLENE GLYCOL 17 GM PACKET PO ×2 (10:54→20:14)
[2018-07-28] MEDS: DOCUSATE SODIUM 100 MG CAP PO ×2 (10:54→20:14)
[2018-07-28] MEDS: SENNA TAB PO ×2 (10:54→20:15)
[2018-07-28] MEDS: ALPRAZOLAM 0.25 MG TAB PO (12:27)
[2018-07-28] MEDS: LORAZEPAM 2 MG INJ IV (20:13)
[2018-07-29] MEDS: AMPICILLIN 1 GM/NS (PMX) 50 ML IVPB ×4 (00:16→17:08)
[2018-07-29] MEDS: HYDROmorphONE 0.2 MG/ML PCA IV ×4 (03:58→23:32)
[2018-07-29] MEDS: SOD CHLORIDE 0.9% 1,000 ML IV ×4 (07:00→21:22)
[2018-07-29] MEDS: STIVARGA 40 MG PO (09:00)
[2018-07-29] MEDS: DOCUSATE SODIUM 100 MG CAP PO ×2 (09:40→21:00)
[2018-07-29] MEDS: SENNA TAB PO ×2 (09:40→21:00)
[2018-07-29] MEDS: CHOLECALCIFEROL 1,000 UNIT TAB PO (09:40)
[2018-07-29] MEDS: FLUOXETINE 20 MG CAP PO (09:40)
[2018-07-29] MEDS: FAMOTIDINE 20 MG TAB PO ×2 (09:40→21:13)
[2018-07-29] MEDS: PREGABALIN 25 MG CAP PO ×2 (09:41→21:13)
[2018-07-29] MEDS: AMLODIPINE 5 MG TAB PO (09:41)
[2018-07-29] MEDS: ENOXAPARIN 30 MG/0.3 ML SYG SC (09:44)
[2018-07-29] MEDS: ONDANSETRON 4 MG INJ IV (11:35)
[2018-07-29 17:27] LABS: ADD MAN DIFF? NO
[2018-07-29 17:30] LABS: BASOPHILS % 0.4 % (0.0-2.0); EOSINOPHILS # 0.1 10^3/ul (0.0-0.5); EOSINOPHILS % 1.2 % (0.0-7.0); HEMATOCRIT 33.3 % (37.0-47.0); HEMOGLOBIN 10.4 g/dl (12.0-16.0); LYMPHOCYTES % 11.7 % (15.0-51.0); MEAN CORPUSCULAR HEMOGLOBIN 27.3 pg (29.0-33.0); MEAN CORPUSCULAR HGB CONC 31.2 g/dl (32.0-37.0); MEAN CORPUSCULAR VOLUME 87.4 fl (82.0-101.0); MEAN PLATELET VOLUME 8.8 fl (7.4-10.4); MONOCYTES % 11.6 % (0.0-11.0); NEUTROPHIL # 6.3 10^3/ul (1.6-7.5); NEUTROPHILS % 74.5 % (39.0-77.0); PLATELET COUNT 253 10^3/UL (140-415); RED BLOOD COUNT 3.81 10^6/ul (4.20-5.40); RED CELL DISTRIBUTION WIDTH 16.6 % (11.5-14.5)
[2018-07-29 17:30] LABS: WHITE BLOOD COUNT 8.4 10^3/ul (4.8-10.8)
[2018-07-29 17:51] LABS: ANION GAP 7 (5-13); BLOOD UREA NITROGEN 2 mg/dl (7-20); CARBON DIOXIDE 29 mmol/L (21-31); CHLORIDE 100 mmol/L (97-110); CREATININE 0.38 mg/dl (0.44-1.00); Estimated GFR > 60 mL/min (>60); GLUCOSE 74 mg/dl (70-220); POTASSIUM 3.2 mmol/L (3.5-5.1); SODIUM 136 mmol/L (135-144)
[2018-07-29] MEDS: POLYETHYLENE GLYCOL 17 GM PACKET PO (21:00)
[2018-07-29] MEDS: LORAZEPAM 2 MG INJ IV (21:17)
[2018-07-30] MEDS: AMPICILLIN 1 GM/NS (PMX) 50 ML IVPB (01:02)
[2018-07-30] MEDS: HYDROmorphONE 0.2 MG/ML PCA IV ×3 (05:47→18:05)
[2018-07-30 06:17] LABS: ADD MAN DIFF? NO
[2018-07-30 06:20] LABS: BASOPHILS % 0.3 % (0.0-2.0); EOSINOPHILS # 0.1 10^3/ul (0.0-0.5); EOSINOPHILS % 1.4 % (0.0-7.0); HEMATOCRIT 34.4 % (37.0-47.0); HEMOGLOBIN 10.8 g/dl (12.0-16.0); LYMPHOCYTES # 0.8 10^3/ul (0.8-2.9); LYMPHOCYTES % 8.4 % (15.0-51.0); MEAN CORPUSCULAR HEMOGLOBIN 27.3 pg (29.0-33.0); MEAN CORPUSCULAR HGB CONC 31.4 g/dl (32.0-37.0); MEAN CORPUSCULAR VOLUME 87.1 fl (82.0-101.0); MEAN PLATELET VOLUME 9.3 fl (7.4-10.4); MONOCYTE # 1.1 10^3/ul (0.3-0.9); MONOCYTES % 11.8 % (0.0-11.0); NEUTROPHILS % 77.4 % (39.0-77.0); PLATELET COUNT 267 10^3/UL (140-415); RED BLOOD COUNT 3.95 10^6/ul (4.20-5.40); RED CELL DISTRIBUTION WIDTH 16.1 % (11.5-14.5)
[2018-07-30 07:18] LABS: ANION GAP 10 (5-13); BLOOD UREA NITROGEN 2 mg/dl (7-20); CALCIUM 7.8 mg/dl (8.4-10.2); CARBON DIOXIDE 28 mmol/L (21-31); CHLORIDE 98 mmol/L (97-110); CREATININE 0.41 mg/dl (0.44-1.00); Estimated GFR > 60 mL/min (>60); GLUCOSE 70 mg/dl (70-220); SODIUM 136 mmol/L (135-144)
[2018-07-30 07:23] LABS: POTASSIUM 2.9 mmol/L (3.5-5.1)
[2018-07-30] MEDS: SOD CHLORIDE 0.9% 1,000 ML IV ×2 (08:28→21:39)
[2018-07-30] MEDS: STIVARGA 40 MG PO (09:00)
[2018-07-30] MEDS: FLUOXETINE 20 MG CAP PO (09:04)
[2018-07-30] MEDS: CHOLECALCIFEROL 1,000 UNIT TAB PO (09:04)
[2018-07-30] MEDS: PREGABALIN 25 MG CAP PO ×2 (09:04→21:39)
[2018-07-30] MEDS: DOCUSATE SODIUM 100 MG CAP PO ×2 (09:04→21:39)
[2018-07-30] MEDS: SENNA TAB PO ×2 (09:04→21:39)
[2018-07-30] MEDS: FAMOTIDINE 20 MG TAB PO ×2 (09:04→21:39)
[2018-07-30] MEDS: AMLODIPINE 5 MG TAB PO (09:05)
[2018-07-30] MEDS: ENOXAPARIN 30 MG/0.3 ML SYG SC (09:05)
[2018-07-30] MEDS: ALPRAZOLAM 0.25 MG TAB PO (14:15)
[2018-07-30] MEDS: AL HYDROX/MG HYDROX/SIMETH 30 ML CUP PO ×3 (14:27→22:26)
[2018-07-30] MEDS: POTASSIUM CHLORIDE 50 ML IVPB ×2 (14:28→16:53)
[2018-07-30] MEDS: POLYETHYLENE GLYCOL 17 GM PACKET PO (21:39)
[2018-07-30] MEDS: LORAZEPAM 2 MG INJ IV (21:39)
[2018-07-31] MEDS: HYDROmorphONE 0.2 MG/ML PCA IV ×4 (01:47→22:21)
[2018-07-31 06:38] LABS: ANION GAP 5 (5-13); CARBON DIOXIDE 29 mmol/L (21-31); CHLORIDE 103 mmol/L (97-110); CREATININE 0.39 mg/dl (0.44-1.00); Estimated GFR > 60 mL/min (>60); GLUCOSE 99 mg/dl (70-220); MAGNESIUM 1.8 mg/dl (1.7-2.5); POTASSIUM 3.4 mmol/L (3.5-5.1); SODIUM 137 mmol/L (135-144)
[2018-07-31 06:39] LABS: BLOOD UREA NITROGEN < 2 mg/dl (7-20)
[2018-07-31] MEDS: FAMOTIDINE 20 MG TAB PO ×2 (08:31→21:29)
[2018-07-31] MEDS: CHOLECALCIFEROL 1,000 UNIT TAB PO (08:31)
[2018-07-31] MEDS: STIVARGA 40 MG PO (08:31)
[2018-07-31] MEDS: SENNA TAB PO ×2 (08:31→21:28)
[2018-07-31] MEDS: FLUOXETINE 20 MG CAP PO (08:31)
[2018-07-31] MEDS: SOD CHLORIDE 0.9% 1,000 ML IV ×3 (08:33→21:27)
[2018-07-31] MEDS: PREGABALIN 25 MG CAP PO (08:34)
[2018-07-31] MEDS: DOCUSATE SODIUM 100 MG CAP PO ×2 (08:35→21:27)
[2018-07-31] MEDS: AMLODIPINE 5 MG TAB PO (08:35)
[2018-07-31] MEDS: ENOXAPARIN 30 MG/0.3 ML SYG SC (08:45)
[2018-07-31] MEDS: AL HYDROX/MG HYDROX/SIMETH 30 ML CUP PO (09:23)
[2018-07-31] MEDS: METHADONE (1 MG/ML 5 ML PO UD SYG) PO ×2 (13:10→21:28)
[2018-07-31] MEDS: POTASSIUM CHLORIDE 100 ML IVPB (14:01)
[2018-07-31] MEDS: LORAZEPAM 2 MG INJ IV (21:27)
[2018-07-31] MEDS: POLYETHYLENE GLYCOL 17 GM PACKET PO (21:29)
[2018-08-01] MEDS: PREGABALIN 25 MG CAP PO ×3 (00:02→20:47)
[2018-08-01] MEDS: HYDROmorphONE 0.2 MG/ML PCA IV ×3 (05:30→18:41)
[2018-08-01 06:09] LABS: ADD MAN DIFF? NO
[2018-08-01 06:10] LABS: BASOPHILS % 0.3 % (0.0-2.0); EOSINOPHILS # 0.3 10^3/ul (0.0-0.5); EOSINOPHILS % 3.9 % (0.0-7.0); HEMATOCRIT 30.5 % (37.0-47.0); HEMOGLOBIN 9.7 g/dl (12.0-16.0); LYMPHOCYTES # 0.8 10^3/ul (0.8-2.9); MEAN CORPUSCULAR HEMOGLOBIN 27.7 pg (29.0-33.0); MEAN CORPUSCULAR HGB CONC 31.8 g/dl (32.0-37.0); MEAN CORPUSCULAR VOLUME 87.1 fl (82.0-101.0); MEAN PLATELET VOLUME 9.1 fl (7.4-10.4); MONOCYTE # 0.9 10^3/ul (0.3-0.9); MONOCYTES % 14.1 % (0.0-11.0); NEUTROPHIL # 4.4 10^3/ul (1.6-7.5); NEUTROPHILS % 69.2 % (39.0-77.0); PLATELET COUNT 287 10^3/UL (140-415); RED CELL DISTRIBUTION WIDTH 16.3 % (11.5-14.5)
[2018-08-01 06:10] LABS: WHITE BLOOD COUNT 6.3 10^3/ul (4.8-10.8)
[2018-08-01] MEDS: SOD CHLORIDE 0.9% 1,000 ML IV ×3 (07:48→18:17)
[2018-08-01] MEDS: DOCUSATE SODIUM 100 MG CAP PO ×2 (09:24→20:47)
[2018-08-01] MEDS: CHOLECALCIFEROL 1,000 UNIT TAB PO (09:24)
[2018-08-01] MEDS: FLUOXETINE 20 MG CAP PO (09:25)
[2018-08-01] MEDS: FAMOTIDINE 20 MG TAB PO ×2 (09:25→20:47)
[2018-08-01] MEDS: SENNA TAB PO ×2 (09:25→20:47)
[2018-08-01] MEDS: AMLODIPINE 5 MG TAB PO (09:25)
[2018-08-01] MEDS: METHADONE (1 MG/ML 5 ML PO UD SYG) PO ×2 (09:26→21:29)
[2018-08-01] MEDS: ENOXAPARIN 30 MG/0.3 ML SYG SC (09:29)
[2018-08-01] MEDS: AL HYDROX/MG HYDROX/SIMETH 30 ML CUP PO (14:54)
[2018-08-01] MEDS: POLYETHYLENE GLYCOL 17 GM PACKET PO (20:48)
[2018-08-01] MEDS: LORAZEPAM 2 MG INJ IV (22:07)
[2018-08-02] MEDS: SOD CHLORIDE 0.9% 1,000 ML IV ×6 (01:00→23:41)
[2018-08-02] MEDS: HYDROmorphONE 0.2 MG/ML PCA IV ×3 (02:42→17:56)
[2018-08-02] MEDS: DOCUSATE SODIUM 100 MG CAP PO ×2 (08:47→21:13)
[2018-08-02] MEDS: SENNA TAB PO ×2 (08:47→21:13)
[2018-08-02] MEDS: PREGABALIN 25 MG CAP PO ×2 (08:48→21:13)
[2018-08-02] MEDS: CHOLECALCIFEROL 1,000 UNIT TAB PO (08:48)
[2018-08-02] MEDS: FAMOTIDINE 20 MG TAB PO ×2 (08:48→21:13)
[2018-08-02] MEDS: FLUOXETINE 20 MG CAP PO (08:48)
[2018-08-02] MEDS: AMLODIPINE 5 MG TAB PO (08:49)
[2018-08-02] MEDS: METHADONE (1 MG/ML 5 ML PO UD SYG) PO ×2 (08:49→21:15)
[2018-08-02] MEDS: ENOXAPARIN 30 MG/0.3 ML SYG SC (08:54)
[2018-08-02 09:11] LABS: ADD MAN DIFF? NO
[2018-08-02 09:17] LABS: WHITE BLOOD COUNT 8.7 10^3/ul (4.8-10.8)
[2018-08-02 09:17] LABS: BASOPHILS % 0.2 % (0.0-2.0); EOSINOPHILS # 0.2 10^3/ul (0.0-0.5); EOSINOPHILS % 2.7 % (0.0-7.0); HEMATOCRIT 33.8 % (37.0-47.0); HEMOGLOBIN 10.7 g/dl (12.0-16.0); LYMPHOCYTES # 1.1 10^3/ul (0.8-2.9); LYMPHOCYTES % 12.9 % (15.0-51.0); MEAN CORPUSCULAR HEMOGLOBIN 27.4 pg (29.0-33.0); MEAN CORPUSCULAR HGB CONC 31.7 g/dl (32.0-37.0); MEAN CORPUSCULAR VOLUME 86.7 fl (82.0-101.0); MEAN PLATELET VOLUME 8.9 fl (7.4-10.4); MONOCYTE # 1.1 10^3/ul (0.3-0.9); MONOCYTES % 12.7 % (0.0-11.0); NEUTROPHIL # 6.1 10^3/ul (1.6-7.5); NEUTROPHILS % 70.8 % (39.0-77.0); PLATELET COUNT 360 10^3/UL (140-415); RED CELL DISTRIBUTION WIDTH 16.2 % (11.5-14.5)
[2018-08-02 17:59] LABS: ANION GAP 6 (5-13); BLOOD UREA NITROGEN 3 mg/dl (7-20); CALCIUM 8.4 mg/dl (8.4-10.2); CARBON DIOXIDE 27 mmol/L (21-31); CHLORIDE 102 mmol/L (97-110); Estimated GFR > 60 mL/min (>60); GLUCOSE 100 mg/dl (70-220); POTASSIUM 3.7 mmol/L (3.5-5.1); SODIUM 135 mmol/L (135-144)
[2018-08-02] MEDS: POLYETHYLENE GLYCOL 17 GM PACKET PO (21:13)
[2018-08-02] MEDS: LORAZEPAM 2 MG INJ IV (22:05)
[2018-08-03] MEDS: HYDROmorphONE 0.2 MG/ML PCA IV ×2 (02:31→10:22)
[2018-08-03] MEDS: SOD CHLORIDE 0.9% 1,000 ML IV ×2 (07:00→09:43)
[2018-08-03] MEDS: ALPRAZOLAM 0.25 MG TAB PO (07:30)
[2018-08-03] MEDS: DOCUSATE SODIUM 100 MG CAP PO (09:35)
[2018-08-03] MEDS: FAMOTIDINE 20 MG TAB PO (09:35)
[2018-08-03] MEDS: FLUOXETINE 20 MG CAP PO (09:35)
[2018-08-03] MEDS: SENNA TAB PO (09:36)
[2018-08-03] MEDS: CHOLECALCIFEROL 1,000 UNIT TAB PO (09:36)
[2018-08-03] MEDS: METHADONE (1 MG/ML 5 ML PO UD SYG) PO (09:40)
[2018-08-03] MEDS: AMLODIPINE 5 MG TAB PO (09:40)
[2018-08-03] MEDS: ENOXAPARIN 30 MG/0.3 ML SYG SC (09:42)
[2018-08-03] MEDS ORDERED: HYDROmorphONE 2 MG/ML SYG IV (12:00)
[2018-08-03] MEDS: PREGABALIN 50 MG CAP PO (12:05)
[2018-08-03] MEDS: HYDROmorphONE 2 MG/ML SYG IV (13:37)
[2018-08-03] MEDS: HEPARIN (100 UNITS/ML) 5 ML SYG CATHETER (14:08)
== END 2018-08-03 14:15 | disposition home health service (06) | DRG 940 ==
LOC: E/R 10:13 → 2NE 13:32
PROC: 0TP98DZ Removal of Intraluminal Device from Ureter, Via Natural or Artificial Opening Endoscopic (ICD-10-PCS; principal; 2018-07-25 17:30)
PROC: 0T778DZ Dilation of Left Ureter with Intraluminal Device, Via Natural or Artificial Opening Endoscopic (ICD-10-PCS; 2018-07-25 17:30)
DX: G89.3 Neoplasm related pain (acute) (chronic) (principal); C77.2 Secondary and unspecified malignant neoplasm of intra-abdominal lymph nodes; N13.1 Hydronephrosis with ureteral stricture, not elsewhere classified; C18.9 Malignant neoplasm of colon, unspecified; C78.7 Secondary malignant neoplasm of liver and intrahepatic bile duct; N39.0 Urinary tract infection, site not specified; G89.4 Chronic pain syndrome; I10 Essential (primary) hypertension; B96.89 Other specified bacterial agents as the cause of diseases classified elsewhere; E87.6 Hypokalemia
CPT/HCPCS: 36415; 71045; 74177; 74430; 80048; 80053; 81003; 83036; 83690; 83735; 84703; 85025; 85610; 85730; 87040; 87086; 96374; 96375; 99285-25